=== PATIENT | male | born 1955 | race Caucasian/White ===

== ENCOUNTER → 2018-06-15 08:50 | Outpatient (CLI) | payer OTHER, SELFPAY ==
--- NOTE | 2018-06-15 08:50 | LES_PTH ---
PATIENT: MILES LIN LOC: PRECIOUS U#:[id number] AGE/SX: 69/M ROOM: RE06/15/[address]: Dr. Robert De Paz MD : 1955 BED: DIS: SPEC #: [id number] RECD: 06/15/18 10:52 STATUS: BREE CORRINE #: [id number] TIFFANY: 06/15/18 08:[address]: Robert De Paz DEPT: SURGICAL PATHOLOGY RECD BY: Victor Manuel Abraham ENTERED: 06/17/18 12:46 SP TYPE: Lesion OTHR DR: Dr. Vijay Joseph MD Tissues: Skin of back, NOS Procedures: Surgery Specimen Level III HEADER OPERATION: Excision of left lower back cyst PRE-OP DIAGNOSIS: Lesion of subcutaneous tissue L98.9 TISSUE SUBMITTED: Left lower back lesion MICROSCOPIC DIAGNOSIS Left lower back lesion, biopsy: Epidermal inclusion cyst. KEZIA:fran 06/18/18 MICROSCOPIC DESCRIPTION Slides are reviewed. GROSS DESCRIPTION Received in fixative is one container labeled with the patient's name and designated left lower back lesion. The specimen consists of a previously ruptured mora-white cyst measuring 2.5 x 2 x 1.5 cm. The cyst is filled with brownish-mora cheesy material. Nuclear Medicine Officer sections are submitted in one cassette. / SJ:rg 06/17/18 TC:5 CPT: 27521
== END ==
PROVIDERS: Family Provider Internal Medicine; PCP Internal Medicine; Referring Provider Surgery; Visit Provider Surgery
DX: L98.8 Other specified disorders of the skin and subcutaneous tissue (principal)
CPT/HCPCS: 88304; 88305

== ENCOUNTER → 2020-10-13 10:48 | Outpatient (CLI) | payer MEDICARE, OTHER, SELFPAY ==
[2020-10-13 12:41] LABS: ALB/GLOB Ratio 0.9 RATIO (0.9-2.4); AST(SGOT) 18 U/L (15-37); Alanine Aminotransfer ALT/SGPT 35 U/L (16-61); Albumin, Serum 3.7 g/dL (3.2-5.0); Alkaline Phosphatase 52 U/L (45-117); Anion Gap 3 (5-15); BUN 14 mg/dL (7-18); Calcium,Total 8.8 mg/dL (8.5-10.1); Chloride 103 mmol/L (98-107); Cholesterol 202 mg/dL (200); Creatinine, Serum 1.08 mg/dL (0.70-1.30); EST Glomerular Filtration Rate 73 mL/min (>60); Est Glom Filt Rate - Afr Amer 88 mL/min (>60); Globulin 3.9 g/dL (2.2-4.2); Glucose 117 mg/dL (74-106); High Density Lipoprotein 32 mg/dL; PSA,Total - Annual Screen 2.43 ng/mL (0.00-4.00); Potassium 3.9 mmol/L (3.5-5.1); Protein, Total 7.6 g/dL (6.4-8.2); Sodium Level 136 mmol/L (136-145); Triglycerides 197 mg/dL; Very Low Density Lipoprotein 39 mg/dL (5-40)
== END ==
PROVIDERS: PCP Internal Medicine; Visit Provider Family Medicine
DX: I10 Essential (primary) hypertension (principal); E78.00 Pure hypercholesterolemia, unspecified; Z12.5 Encounter for screening for malignant neoplasm of prostate
CPT/HCPCS: 36415; 80053; 80061; 84153; G0103

== ENCOUNTER 2021-05-11 14:56 | Emergency (ER) | payer MEDICARE, OTHER, SELFPAY ==
[2021-05-11 14:57] VITALS: BP 146/83; PULSE 88; RESP 18; TEMP 36.6; O2SAT 94; BMI 32.1
--- NOTE | 2021-05-11 15:01 | NURSING ---
NO OLD EKGS
[2021-05-11 15:10] VITALS: BP 163/91; PULSE 85; RESP 20; O2SAT 97
--- NOTE | 2021-05-11 15:24 | EKG12_ITS ---
Test Reason : CP Blood Pressure : / mmHG Vent. Rate : 088 BPM Atrial Rate : 088 BPM P-R Int : 176 ms QRS Dur : 092 ms QT Int : 370 ms P-R-T Axes : 041 025 020 degrees QTc Int : 447 ms Normal sinus rhythm Normal ECG Confirmed by ANTHONY CASEY, GA ([id number]), editor dictionary DARLENE RODRIGUEZ ([id number]) on 05/12/2021 10:22:40 A M Referred By: RAY Confirmed By:MACIEJ CRUZ MD
--- NOTE | 2021-05-11 15:37 | RAD_ITS ---
STUDY: X-RAY CHEST REASON FOR EXAM: Male, 65 years old. CHEST PAIN SOB / SOA chest pain TECHNIQUE: XR Chest 1 View COMPARISON: None FINDINGS: There is a right pleural effusion. Normal size heart. Normal mediastinum and jose carlos. Normal visualized pulmonary arteries. There is atherosclerotic calcification of the aortic arch with tortuosity. There are diffuse degenerative changes of the visualized thoracic spine. There is degenerative osteoarthritis of the bilateral shoulders. There is no demonstrated abnormality of the visualized soft tissue structures of the upper abdomen. RAD/Chest 1 View (Portable) IMPRESSION: There is a right pleural effusion. Electronically Signed: Carl Mcgregor MD at 16:06 EST ,
[2021-05-11 15:38] LABS: Absolute Lymphocyte Count 1.18 X10^3/uL (0.83-4.51); Absolute Neutrophil Count 7.8 X10^3/uL (2.0-7.7); Basophil# 0.03 X10^3/uL; Basophil% 0.3 % (0-1); Eosinophil# 0.17 X10^3/uL; Eosinophils% 1.6 % (0-5); Hematocrit 46.7 % (40-54); Lymphocyte # 1.18 X10^3/ul (0.83-4.51); Lymphocyte % 11.2 % (19-41); Mean Corp Hgb Conc 34.3 g/dL (32-36); Mean Corpuscular Hgb 30.8 pg (27.0-32.0); Mean Platelet Vol. 9.6 fl (6.2-12.0); Monocyte# 1.29 X10^3/uL; Monocyte% 12.3 % (0-10); NRBC Flagged by Analyzer 0 % (0-5); Neutrophil # 7.79 X10^3/uL (2.7-7.7); Neutrophil % 74.2 % (47-70); Platelet Count 258 K/mm3 (150-450); RBC Distribution Width CV 12.6 % (11.6-14.6); RBC Distribution Width SD 41.2 fl (35.1-43.9); Red Blood Count 5.19 M/mm3 (4.6-6.2); White Blood Count 10.5 K/mm3 (4.4-11.0)
--- NOTE | 2021-05-11 15:47 | CT_ITS ---
We are attempting to reach an attending provider to discuss findings. An addendum with communication details will be sent when the communication is complete. EXAM: CT ANGIOGRAPHY CHEST WITHOUT AND WITH INTRAVENOUS CONTRAST CLINICAL INDICATION: right sided cp concern for PE hypertension TECHNIQUE: Helically acquired angiography images were obtained of the chest without and with intravenous contrast. This CT exam was performed using one or more of the following dose reduction techniques: automated exposure control, adjustment of the mA and/or kV according to patient size, and/or use of iterative reconstruction technique. This report was created using [employer] report generation technology. MIP reconstructed images were created and reviewed. CONTRAST: IV 100mL Isovue-370 COMPARISON: None. FINDINGS: PULMONARY ARTERIES: There is a right lower lobe demonstrated pulmonary embolism. No heart strain. Normal in caliber. AORTA: Unremarkable. Normal in caliber. No evidence of dissection. GREAT VESSELS OF AORTIC ARCH: Unremarkable. Normal in caliber. No evidence of dissection. LUNGS AND PLEURAL SPACES: There is small right pleural effusion. No mass. No pneumothorax. HEART: There are calcifications of the coronary arteries. No pericardial effusion. No signs of right heart strain, ratio of right ventricle to left ventricle measures less than 1. MEDIASTINUM: Unremarkable. No mediastinal or hilar adenopathy. Esophagus is unremarkable. No hiatal hernia. THYROID: Unremarkable. No thyroid lesions. BONES/JOINTS: There are degenerative findings of the thoracic spine. No suspicious lytic or blastic abnormality. CT/CTA Chest W/WO Contrast IMPRESSION: 1. There is a right lower lobe demonstrated pulmonary embolism. No heart strain. 2. There is small right pleural effusion. Electronically Signed: Carl Mcgregor MD at 16:39 EST ,
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
[2021-05-11] MEDS: Aspirin 81 MG TAB.CHEW 324 MG PO (15:50)
[2021-05-11 15:52] LABS: Anion Gap 6 (5-15); BUN 10 mg/dL (7-18); BUN/Creat Ratio 9.3 RATIO (10-20); Calcium,Total 8.8 mg/dL (8.5-10.1); Chloride 99 mmol/L (98-107); Creatinine, Serum 1.08 mg/dL (0.70-1.30); EST Glomerular Filtration Rate 72 mL/min (>60); Est Glom Filt Rate - Afr Amer 88 mL/min (>60); Estimated Creatinine Clearance 70.69 ml/min; Glucose 162 mg/dL (74-106); Potassium 3.5 mmol/L (3.5-5.1); Sodium Level 134 mmol/L (136-145); Troponin-I HS 3 pg/mL (3.0-78.0)
[2021-05-11 17:00] VITALS: BP 130/82; PULSE 81; RESP 20; O2SAT 93
[2021-05-11 17:32] LABS: Troponin-I HS 4 pg/mL (3.0-78.0)
[2021-05-11 18:00] VITALS: BP 130/82; PULSE 80; RESP 17; O2SAT 95
== END 2021-05-11 18:29 | disposition home or self-care (01) ==
PROVIDERS: Emergency Provider Emergency Medicine; PCP Family Medicine; Visit Provider Emergency Medicine
DX: I26.99 Other pulmonary embolism without acute cor pulmonale (principal); R07.9 Chest pain, unspecified; J90 Pleural effusion, not elsewhere classified; I10 Essential (primary) hypertension; Z86.16 Personal history of COVID-19; Z79.899 Other long term (current) drug therapy
CPT/HCPCS: 71045; 71275; 80048; 84484; 85025; 93005; 99284; Q9967; A4216

== ENCOUNTER → 2021-10-17 | Outpatient (CLI) | payer MEDICARE, OTHER, SELFPAY ==
[2021-10-17 15:18] LABS: Absolute Lymphocyte Count 1.46 X10^3/uL (0.83-4.51); Absolute Neutrophil Count 3.7 X10^3/uL (2.0-7.7); Basophil# 0.04 X10^3/uL; Basophil% 0.7 % (0-1); Eosinophil# 0.13 X10^3/uL; Eosinophils% 2.2 % (0-5); Hematocrit 46.7 % (40-54); Hemoglobin 15.5 g/dL (13.0-16.5); Lymphocyte # 1.46 X10^3/ul (0.83-4.51); Lymphocyte % 24.5 % (19-41); Mean Corp Hgb Conc 33.2 g/dL (32-36); Mean Corpuscular Hgb 30.6 pg (27.0-32.0); Mean Corpuscular Volume 92.3 fL (80-94); Mean Platelet Vol. 10.3 fl (6.2-12.0); Monocyte% 10.1 % (0-10); NRBC Flagged by Analyzer 0 % (0-5); Platelet Count 232 K/mm3 (150-450); RBC Distribution Width CV 13.3 % (11.6-14.6); Red Blood Count 5.06 M/mm3 (4.6-6.2)
[2021-10-17 15:37] LABS: Vitamin B12 286 pg/mL (211-911)
[2021-10-17 15:38] LABS: ALB/GLOB Ratio 0.9 RATIO (0.9-2.4); AST(SGOT) 24 U/L (15-37); Alanine Aminotransfer ALT/SGPT 34 U/L (16-61); Albumin, Serum 3.4 g/dL (3.2-5.0); Alkaline Phosphatase 47 U/L (45-117); Anion Gap 7 (5-15); BUN 17 mg/dL (7-18); BUN/Creat Ratio 16.3 RATIO (10-20); Calcium,Total 8.9 mg/dL (8.5-10.1); Chloride 101 mmol/L (98-107); Cholesterol 201 mg/dL (200); Creatinine, Serum 1.04 mg/dL (0.70-1.30); EST Glomerular Filtration Rate 75 mL/min (>60); Est Glom Filt Rate - Afr Amer 91 mL/min (>60); Globulin 3.8 g/dL (2.2-4.2); Glucose 141 mg/dL (74-106); High Density Lipoprotein 34 mg/dL; Magnesium 2.2 mg/dL (1.6-2.6); PSA,Total - Annual Screen 1.05 ng/mL (0.00-4.00); Potassium 3.5 mmol/L (3.5-5.1); Protein, Total 7.2 g/dL (6.4-8.2); Sodium Level 136 mmol/L (136-145); Thyroid Stim Hormone (TSH) 1.47 uIU/mL (0.358-3.74); Triglycerides 168 mg/dL; Very Low Density Lipoprotein 34 mg/dL (5-40)
== END | disposition home or self-care (01) ==
LOC: MFPLAB 11:35
PROVIDERS: PCP Family Medicine; Referring Provider Family Medicine; Visit Provider Family Medicine
DX: R25.2 Cramp and spasm (principal); E11.9 Type 2 diabetes mellitus without complications; Z12.5 Encounter for screening for malignant neoplasm of prostate
CPT/HCPCS: 36415; 80053; 80061; 82607; 83735; 84153; 84443; 85025; G0103

== ENCOUNTER → 2023-05-31 | Outpatient (CLI) | payer MEDICARE, OTHER, SELFPAY ==
--- OUTSIDE RECORDS SUMMARY | 2023-05-31 11:05 | XMS RPT_ITS | CCD ---
Author Name Unknown Address [address] [place] [address] Organization [facility] Care Team Providers Care Society Reporter Name Role Phone ALLIE TIWARI Unavailable Unavailable ALLIE TIWARI Unavailable Unavailable ALLIE TIWARI Unavailable Unavailable ALLIE TIWARI Unavailable Unavailable Allie Tiwari MD Primary Care Provider [phone] ALLIE TIWARI Primary Care Unavailable MADIHA GIBBONS Attending Unavailable ALLIE TIWARI Primary Care Unavailable Medications Current Medications Medication Drug Class(es) Dates Sig (Normalized) Sig (Original) amoxicillin 875 mg oral tablet (1 source) Penicillin-class Antibacterial Start: 05-14-2022 End: 05-24-2022 take 1 tablet by mouth twice daily amoxicillin (AMOXIL) 875 mg tablet Indications: Laceration of left knee, initial encounter Take 1 tablet by mouth twice daily for 10 days. 20 tablet 0 05/14/2022 05/24/2022 Active Completed/Discontinued Medications Medication Drug Class(es) Dates Sig (Normalized) Sig (Original) atenolol 25 mg oral tablet (2 sources) beta-Adrenergic Sharon take 1 tablet by mouth once daily atenolol (TENORMIN) 25 mg tablet Take 25 mg by mouth once daily. 0 Active Problems Active Problems Problem Classification Problem Date Documented Da te Episodic/Chronic Open wounds of extremities (2 sources) Laceration of left knee; Translations: [Laceration without foreign body, left knee, initial encounter] Onset: 05-14-2022 Episodic Other aftercare (1 source) Surgical follow-up; Translations: [Encounter for removal of sutures] Episodic Other aftercare (1 source) Encounter for removal of sutures; Translations: [Encounter for staple removal] Onset: 03-05-2023 Episodic Past or Other Problems Problem Classification Problem Date Documented Da te Episodic/Chronic Abdominal hernia (2 sources) Right inguinal hernia ; Translations: [Unilateral inguinal hernia, without obstruction or gangrene, not specified as recurrent] Onset: 03-09-2012 03-09-2012 Episodic Medical examination/evaluation (2 sources) Encounter for other general examination; Translations: [Encounter for other general examination] Onset: 03-23-2017 Episodic Results Test Name Value Interpretation Reference Range Facil ity Vital Signs Date Time Vital Sign Value Performing Clinician Danita baires 05-28-2022 12:23-0500 Body temperature 98.6 [degF] [facility] [place] Work Phone: [facility] 05-28-2022 12:23-0500 Body weight 102.51 kg [facility] [place] Work Phone: [facility] 05-28-2022 12:23-0500 Diastolic blood pressure 75 mm[Hg] [facility] [place] Work Phone: [facility] 05-28-2022 12:23-0500 Heart rate 58 /min [facility] [place] Work Phone: [facility] 05-28-2022 12:23-0500 Respiratory rate 16 /min [facility] [place] Work Phone: [facility] 05-28-2022 12:23-0500 SaO2% (BldA) [Mass fraction] 96 % [facility] [place] Work Phone: [facility] 05-28-2022 12:23-0500 Systolic blood pressure 153 mm[Hg] [facility] [place] Work Phone: [facility] 05-14-2022 10:12-0500 Body temperature 98.6 [degF] Madiha Gibbons DO Work Phone: [facility] 05-14-2022 10:12-0500 Body weight 102.51 kg Madiha Gibbons DO Work Phone: [facility] 05-14-2022 10:12-0500 Diastolic blood pressure 74 mm[Hg] Madiha Gibbons DO Work Phone: [facility] 05-14-2022 10:12-0500 Heart rate 90 /min Madiha Gibbons DO Work Phone: [facility] 05-14-2022 10:12-0500 Respiratory rate 16 /min Madiha Gibbons DO Work Phone: [facility] 05-14-2022 10:12-0500 SaO2% (BldA) [Mass fraction] 98 % Madiha Gibbons DO Work Phone: [facility] 05-14-2022 10:12-0500 Systolic blood pressure 150 mm[Hg] Madiha Gibbons DO Work Phone: [facility] Encounters Encounter Date Encounter Type Care Provider Facility Start: 05-28-2022 End: 05-28-2022 ambulatory ALLIE TIWARI Facility:[id number] Start: 05-28-2022 End: 05-28-2022 Patient encounter procedure [facility] Work Phone: [facility] Procedures Date Procedure Procedure Detail Performing Clinician Start: 04-24-2016 Colonoscopy Madiha Anderson erika DO Work Phone: Plan of Treatment Date Care Activity Detail Author Start: 04-24-2026 Colonoscopy COLONOSCOPY [facility] Start: 04-24-2026 COLORECTAL CANCER SCREENING COLORECTAL CANCER SCREENING [facility] Start: 03-26-2022 ADVANCE DIRECTIVE DISCUSSION ADVANCE DIRECTIVE DISCUSSION [facility] Start: 03-26-2022 DEPRESSION ASSESSMENT DEPRESSION ASSESSMENT [facility] Start: 11-24-2021 Influenza vaccination INFLUENZA (#1) [facility] Start: 2018 PNEUMOCOCCAL: 65+ (1 - PCV) PNEUMOCOCCAL: 65+ (1 - PCV) [facility] Start: 02-13-2017 LIPID SCREEN LIPID SCREEN [facility] Start: 02-13-2015 DIABETES SCREEN DIABETES SCREEN [facility] Start: 2008 PROSTATE CANCER SCREENING DISCUSSION PROSTATE CANCER SCREENING DISCUSSION [facility] Start: 08-21-2003 SHINGRIX VACCINE (1 of 2) SHINGRIX VACCINE (1 of 2) [facility] Start: 1998 COLOGUARD (FIT-DNA) COLOGUARD (FIT-DNA) [facility] Start: [address] COLONOGRAPHY [facility] Start: 1998 FECAL OCCULT BLOOD FECAL OCCULT BLOOD [facility] Start: 1998 SIGMOIDOSCOPY SIGMOIDOSCOPY [facility] Start: 1972 Urine microalbumin profile DTAP,TDAP,TD (1 - Tdap) [facility] Start: 08-21-1971 HEPATITIS C SCREENING HEPATITIS C SCREENING [facility] Start: 02-20-1954 COVID-19 VACCINE (#1) COVID-19 VACCINE (#1) [facility] Start: 1953 ABDOMINAL AORTIC ANEURYSM SCREENING ABDOMINAL AORTIC ANEURYSM SCREENING [facility] Dressing change unde r anesthesia DRESSING CHANGE,NOT FOR BURN Procedures Routine Laceration of left knee, initial encounter Ordered: 05/14/2022 [facility] Work Phone: Payers Date Payer Category Payer Medicare [id number] 2019 Medicare [id number] 2019 Medicare [id number] 2017 Unknown [id number] 2017 Unknown [id number] Social History Date Type Detail Facility Start: 03-09-2012 Tobacco smoking stat [facility] Ex-smoker [facility] End: 03-09-1982 History of tobacco use Current smoker [facility] End: 03-09-1982 History of tobacco use Cigarette Smoker [facility] Start: 05-14-2022 End: 05-28-2022 Alcohol intake Current drinker of alcohol (finding) [facility] Start: 04-24-2016 [facility] Start: 1955 Sex Assigned At Not on file C [facility] Medical Equipment Procedure Code Equipment Code Equipment Origin al Text Equipment Identifier Dates Mesh Srg Flat Te c 6x6in Brandon - [id number] Start: 04-08-2012 History and physical note 05-28-2022 Madiha Gibbons DO - 05/28/2022 1:40 PM EST Note Date & Type Note Facility 05-28-2022 History and physi robby note Patient was seen for laceration 14 days ago and jamaal were placed about 15 of them in the left knee. He presents today to have those jamaal removed. The wound is dry clean no drainage no bleeding. It looks good the jamaal were all removed the patient tolerated it well no complications were encountered. The one end toward the proximal end has a small scab over and I did put a little bacitracin and a Band-Aid over that area. He was told to protect it for another week. Watch for signs of infection redness swelling drainage discharge increasing pain or fever if that happens let us know basically this is over now just go ahead and do his normal activity but try to protect it a little bit for another week and then think should be back to normal and is this dictation documented in this encounter [facility] Progress note 05-14-2022 Note Date & Type Note Facility 05-14-2022 Note HNO ID: [id number] Author: Zena Goldman LPN Service: ? Author Type: LICENSED NURSE Type: Progress Notes Filed: 05/14/2022 10:59 AM Note Text: Bandaid applied to left knee, patient tolerated well.Zena Goldman LPN [facility] Progress note 05-14-2022 Note Date & Type Note Facility 05-14-2022 Note HNO ID: [id number] Author: Madiha Gibbons DO Service: ? Author Type: Physician Type: Progress Notes Filed: 05/14/2022 10:46 AM Note Text: Miles Gomez is a 66 year old MALE who presents with Laceration (Laceration left knee cut with a chain saw yesterday about 10am, wound 4.5cm, tetnus is up to date) HPI PAST MEDICAL HISTORY Diagnosis Date HTN (hypertension) Hypercholesteremia Snoring ACTIVE PROBLEM LIST Right Inguinal Hernia Current Outpatient Medications Medication Sig Dispense Refill atenolol (TENORMIN) 25 mg tablet Take 25 mg by mouth once daily. hydrochlorothiazide 25 mg tablet Take 25 mg by mouth once daily. amoxicillin (AMOXIL) 875 mg tablet Take 1 tablet by mouth twice daily for 10 days. 20 tablet 0 [employer]-3 Fatty Acids (FISH OIL) 500-100 mg cap Take by mouth once daily. No current facility-administered medications for this visit. Social History Tobacco Use Smoking status: Former Types: Cigarettes Quit date: 03/09/1982 Years since quittin.2 Substance Use Topics Alcohol use: Yes Comment: rarely Drug use: No Alcohol Use: Yes (rarely) Tobacco Use: Quit 03/09/1982. Types: Cigarettes FAMILY HISTORY Problem Relation Age of Onset Cancer Father lung Coronary Artery Disease Father ROS BP 150/74 Pulse 90 Temp 98.6 Resp 16 Wt 226 lb (102.5kg) SpO2 98% Physical Exam Skin: Comments: Patient has a 4-1/2 cm laceration from a chainsaw it runs across the patella on the left knee. It does not appear to involve the deeper tissues it did go through the skin and it did go through his pants but it did not seem to get to the deeper tissues the patellar tendon appears to be intact the kneecap itself does not appear to be affected the patient is not having tremendous pain. He washed it out good yesterday but it has been over 6 hours still looking at this this needs to be closed. It is oriented vertically across the kneecap. And is going to require several jamaal to close it. The patient wound was properly cleansed with a baby shampoo and saline copiously irrigated and no foreign bodies were noted and then anesthetized with 1% lidocaine plain 5 cc patient tolerated it well 10 jamaal were placed and the wound edges were approximated hemostasis was achieved bacitracin and a Band-Aid are applied the patient is to come back in 10 to 14 days preferably 14 to have the jamaal removed. He is placed on Amoxil 875 twice a day and he can use Motrin as needed for pain. keep the wound clean and dry. ASSESSMENT/PLAN: 1. Laceration of left knee, initial encounter - ICD9: 891.0, ICD10: S81.012A - AMOXICILLIN 875 MG TABLET Madiha Gibbons [facility] History of Present illness Narrative 05-14-2022 Zena Goldman LPN - 05/14/2022 10:58 AM Christina Gibbons DO - 05/14/2022 10:42 AM EST Note Date & Type Note Facility 05-14-2022 History of Presen t illness Narrative Bandaid applied to left knee, patient tolerated well.Zena Goldman LPN Images from the original note were not included. Miles Gomez is a 66 year old MALE who presents with Laceration (Laceration left knee cut with a chain saw yesterday about 10am, wound 4.5cm, tetnus is up to date) HPI PAST MEDICAL HISTORY Diagnosis Date HTN (hypertension) Hypercholesteremia Snoring ACTIVE PROBLEM LIST Right Inguinal Hernia Current Outpatient Medications Medication Sig Dispense Refill atenolol (TENORMIN) 25 mg tablet Take 25 mg by mouth once daily. hydrochlorothiazide 25 mg tablet Take 25 mg by mouth once daily. amoxicillin (AMOXIL) 875 mg tablet Take 1 tablet by mouth twice daily for 10 days. 20 tablet 0 [employer]-3 Fatty Acids (FISH OIL) 500-100 mg cap Take by mouth once daily. No current facility-administered medications for this visit. Social History Tobacco Use Smoking status: Former Types: Cigarettes Quit date: 03/09/1982 Years since quittin.2 Substance Use Topics Alcohol use: Yes Comment: rarely Drug use: No Alcohol Use: Yes (rarely) Tobacco Use: Quit 03/09/1982. Types: Cigarettes FAMILY HISTORY Problem Relation Age of Onset Cancer Father lung Coronary Artery Disease Father ROS BP 150/74 Pulse 90 Temp 98.6 Resp 16 Wt 226 lb (102.5kg) SpO2 98% Physical Exam Skin: Comments: Patient has a 4-1/2 cm laceration from a chainsaw it runs across the patella on the left knee. It does not appear to involve the deeper tissues it did go through the skin and it did go through his pants but it did not seem to get to the deeper tissues the patellar tendon appears to be intact the kneecap itself does not appear to be affected the patient is not having tremendous pain. He washed it out good yesterday but it has been over 6 hours still looking at this this needs to be closed. It is oriented vertically across the kneecap. And is going to require several jamaal to close it. The patient wound was properly cleansed with a baby shampoo and saline copiously irrigated and no foreign bodies were noted and then anesthetized with 1% lidocaine plain 5 cc patient tolerated it well 10 jamaal were placed and the wound edges were approximated hemostasis was achieved bacitracin and a Band-Aid are applied the patient is to come back in 10 to 14 days preferably 14 to have the jamaal removed. He is placed on Amoxil 875 twice a day and he can use Motrin as needed for pain. keep the wound clean and dry. ASSESSMENT/PLAN: 1. Laceration of left knee, initial encounter - ICD9: 891.0, ICD10: S81.012A - AMOXICILLIN 875 MG TABLET Madiha Gibbons documented in this encounter [facility] Progress note 12-06-2020 Note Date & Type Note Facility 12-06-2020 Note HNO ID: [id number] Author: Damaris Hayes RN Service: ? Author Type: Registered Nurse Type: Progress Notes Filed: 12/06/2020 3:00 PM Note Text: Patient presented for a colonoscopy consultation at the request of Dr. Hira Bryan. Upon checking in the patient, it was noted that his last colonoscopy was performed on 04/24/2016. The report from that colonoscopy showed no biopsies or polyps were obtained and according to Dr. De Paz, the colonoscopy could be repeated in 10 years. The patient denies any change in bowel habits, bleeding from the rectum, abdominal pain or change in family history. Spoke with Dr. De Paz, he advised that if the patient is not having any problems, he can wait until his repeat colonoscopy is due in 2026. Spoke with the patient, advised that we do not need to do a colonoscopy at this time, however if he has any changes in bowel habits he is to let our office know right away. Patient voiced understanding. Faxed copy of [address] Bryan's office. Appointment for today was cancelled. Damaris Hayes RN [facility] Evaluation note Note Date & Type Note Facility documented in this encounter [facility] Evaluation note Note Date & Type Note Facility documented in this encounter [facility] Summary Purpose Family History No Family History Records FoundNo Family History Records FoundNo Family History Records Found Advance Directives No Advanced Directives Records FoundNo Advanced Directives Records FoundNo Advanced Directives Records Found Additional Source Comments (unrecognized sect ion and content) No Status Records FoundNo Status Records FoundNo Status Records Found INFORMATION SOURCE (unrecogn ized section and content) DATE CREATED AUTHOR AUTHOR'S ORGANIZ ATION 12/09/2020 [facility] DATE CREATED AUTHOR AUTHOR'S ORGANIZ ATION 05/30/2022 [facility] nter Source Comments (unrecognize d section and content) In the event this informatio n is protected by the Federal Confidentiality of Alcohol and Drug Abuse Patient Records regulations: The Federal rules restrict any use of the information to criminally investigate or prosecute any alcohol or drug abuse patient.[facility] the event this information is protected by the Federal Confidentiality of Alcohol and Drug Abuse Patient Records regulations: The Federal rules restrict any use of the information to criminally investigate or prosecute any alcohol or drug abuse patient.[facility] Reason for Visit (unrecogniz ed section and content) Reason Comments Suture Removal Left knee staple rem oval placed 05/14 at [place] [facility] Care Teams (unrecognized sec tion and content) Society Reporter Relationship Specialty Start Date End Date Allie Tiwari MD PCP - General Internal Medicine 03/09/12 FOR RECORDS PERTAINING TO PATIENTS WHO ARE OR HAVE BEEN ENROLLED IN A CHEMICAL DEPENDENCY/SUBSTANCEABUSE PROGRAM, SOME INFORMATION MAY BE OMITTED. This clinical summary was aggregated from multiple sources. Caution should be exercised in using it in the provision of clinical care. This summary normalizes information from multiple sources, and as a consequence, information in this document may materially change the coding, format and clinical context of patient data. In addition, data may be omitted in some cases. CLINICAL DECISIONS SHOULD BE BASED ON THE PRIMARY CLINICAL RECORDS. [facility] [employer] [facility]. provides no warranty or guarantee of the accuracy or completeness of information in this document.
== END | disposition home or self-care (01) ==
LOC: MFPLAB 10:45
PROVIDERS: PCP Family Medicine; Visit Provider Family Medicine
DX: E11.9 Type 2 diabetes mellitus without complications (principal)
CPT/HCPCS: 36415; 83036

== ENCOUNTER → 2024-05-12 | Outpatient (CLI) | payer MEDICARE, OTHER, SELFPAY ==
[2024-05-12 12:43] LABS: Hematocrit 49.5 % (40-54); Hemoglobin 16.7 g/dL (13.0-16.5); Mean Corp Hgb Conc 33.7 g/dL (32-36); Mean Corpuscular Hgb 30.1 pg (27.0-32.0); Mean Corpuscular Volume 89.4 fL (80-94); Mean Platelet Vol. 9.8 fl (6.2-12.0); Platelet Count 237 K/mm3 (150-450); RBC Distribution Width CV 12.7 % (11.6-14.6); RBC Distribution Width SD 41.6 fl (35.1-43.9); Red Blood Count 5.54 M/mm3 (4.6-6.2); White Blood Count 6.8 K/mm3 (4.4-11.0)
[2024-05-12 12:57] LABS: ALB/GLOB Ratio 0.8 RATIO (0.9-2.4); AST(SGOT) 25 U/L (15-37); Alanine Aminotransfer ALT/SGPT 49 U/L (16-61); Albumin, Serum 3.6 g/dL (3.2-5.0); Alkaline Phosphatase 51 U/L (45-117); Anion Gap 7 (5-15); BUN 14 mg/dL (7-18); BUN/Creat Ratio 12.6 RATIO (10-20); Calcium,Total 9.6 mg/dL (8.5-10.1); Chloride 105 mmol/L (98-107); Cholesterol 208 mg/dL (200); Creatinine, Serum 1.11 mg/dL (0.70-1.30); EST Glomerular Filtration Rate 70 mL/min (>60); Est Glom Filt Rate - Afr Amer 84 mL/min (>60); Globulin 4.3 g/dL (2.2-4.2); Glucose 139 mg/dL (74-106); High Density Lipoprotein 38 mg/dL; PSA,Total - Annual Screen 1.23 ng/mL (0.00-4.00); Protein, Total 7.9 g/dL (6.4-8.2); Sodium Level 137 mmol/L (136-145); Triglycerides 346 mg/dL; Very Low Density Lipoprotein 69 mg/dL (5-40)
[2024-05-13 13:07] LABS: PROEL- Albumin 3.7 g/dL (2.9-4.4); PROEL- Alpha-1 Globulin 0.2 g/dL (0.0-0.4); PROEL- Alpha-2 Globulin 0.9 g/dL (0.4-1.0); PROEL- Beta Globulin 1.5 g/dL (0.7-1.3); PROEL- Gamma Globulin 1.1 g/dL (0.4-1.8); PROEL- Globulin, Total 3.7 g/dL (2.2-3.9); PROEL- TOTAL PROTEIN 7.4 g/dL (6.0-8.5); PROEL-M-Spike Not Observed g/dL (Not Observed)
== END | disposition home or self-care (01) ==
PROVIDERS: PCP Family Medicine; Referring Provider Family Medicine; Visit Provider Family Medicine
DX: E11.9 Type 2 diabetes mellitus without complications (principal); M79.10 Myalgia, unspecified site; Z12.5 Encounter for screening for malignant neoplasm of prostate
CPT/HCPCS: 36415; 80053; 80061; 84153; 84165; 84403; 84443; 85027; G0103

== ENCOUNTER → 2024-08-14 | Outpatient (CLI) | payer MEDICARE, OTHER, SELFPAY ==
--- NOTE | 2024-08-14 10:38 | VDLE_ITS ---
Reason For Study Reason For Study: Left leg swelling RIGHT LEFT CFV is compressible, spontaneous, phasic, competent GSV is normal. and demonstrates normal augmentation. Acute deep vein thrombosis is noted in the left CFV, Procedure FV, PopV, T/P Trunk, Gastroc V, PTV, and PeroV. This is a venous duplex using B-mode, color flow and Thrombus in CFV and FV prox is mobile. spectral Doppler. Acute superficial vein thrombosis is noted in the Exam performed in department. left SSV. A preliminary report was called and/or faxed to Shira KEYES. VL/Venous Duplex US, Unilateral Interpretation Summary Acute deep vein thrombosis noted in the left common femoral vein, femoral vein, popliteal vein, tibioperoneal trunk vein, gastrocnemius vein, posterior tibial vein, peroneal vein. Acute superficial vein thrombosis noted in the left small saphenous vein. Ordering Physician: Goyo Del Valle Referring Physician: Hira Bryan MD Performed By: Regina Velázquez RVT
== END | disposition home or self-care (01) ==
LOC: CVS 10:34
PROVIDERS: PCP Family Medicine; Referring Provider Family Medicine; Visit Provider Family Medicine
DX: M79.89 Other specified soft tissue disorders (principal); M79.605 Pain in left leg
CPT/HCPCS: 93971

== ENCOUNTER → 2024-09-24 | Outpatient (CLI) | payer MEDICARE, OTHER, SELFPAY ==
--- NOTE | 2024-09-24 12:50 | VDLE_ITS ---
Reason For Study Reason For Study: HX LLE DVT RIGHT LEFT CFV is compressible, spontaneous, phasic, competent Acute deep vein thrombosis is noted in the left CFV and demonstrates normal augmentation. distal to SFJ and throughout the FV, PopV, T/P Trunk Procedure and Gastroc V This is a venous duplex using B-mode, color flow and PTV is compressible spectral Doppler. [place] V is compressible Exam performed in department. The exam was diagnostic. Compare to study 08/14/2024. A preliminary report was called and/or faxed to [facility]. VL/Venous Duplex US, Unilateral Interpretation Summary Acute deep vein thrombosis noted in the left common femoral vein, femoral vein, popliteal vein, tibioperoneal trunk vein, gastrocnemius vein. Partial clot resolution in interval since prior imaging Ordering Physician: Ritu Appiah Referring Physician: Hira Bryan Performed By: Yousif Calzada RVT
== END | disposition home or self-care (01) ==
LOC: CVS 12:49
PROVIDERS: PCP Family Medicine; Referring Provider Physician Assistant; Visit Provider Physician Assistant
DX: R22.42 Localized swelling, mass and lump, left lower limb (principal); I82.402 Acute embolism and thrombosis of unspecified deep veins of left lower extremity
CPT/HCPCS: 93971

== ENCOUNTER → 2024-12-04 | Outpatient (CLI) | payer MEDICARE, OTHER, SELFPAY ==
[2024-12-04 18:10] LABS: Creatinine, Urine (random) 100.00 mg/dL (39.00-259.00); Microalbumin,Random Urine < 12.0 mg/L (<20 mg/L)
== END | disposition home or self-care (01) ==
LOC: MFPLAB 14:56 → LABSPEC 14:58
PROVIDERS: PCP Family Medicine; Visit Provider Family Medicine
DX: E11.9 Type 2 diabetes mellitus without complications (principal)
CPT/HCPCS: 82043; 82570

== ENCOUNTER → 2025-02-27 | Outpatient (CLI) | payer MEDICARE, OTHER, SELFPAY ==
--- NOTE | 2025-02-27 10:04 | VDLE_ITS ---
Reason For Study Reason For Study: Left leg swelling RIGHT LEFT CFV is compressible, spontaneous, phasic, competent CFV is partially compressible with bright and demonstrates normal augmentation. intraluminal echoes consistet with Chronic DVT. Procedure Normal venous flow noted. This is a venous duplex using B-mode, color flow and FV is partially NONCOMPRESSIBLE throughout with mixed spectral Doppler. echogenicity noted. Minimal venous flow throughout. Exam performed in department. PopV is partially compressible with mixed Patient was scanned in reverse Trendelenburg position echogenicity noted. Venous flow noted with during reflux assessment. augmentation. Compared to 09/24/2024. T/P trunk is partially compressible. Gasroc V is partially compressible. PTV is compressible. LT PerV is compressible. SFJ is competent and measures 0.91 cm. GSV proximal thigh measures 0.43 x 0.43 cm. GSV at knee measures 0.54 x 0.54 cm. GSV INCOMPETENT throughout for greater than 0.5 seconds. INCOMPETENT conventions reservationist noted 14 cm above medial malleolus. SSV mid calf is competent and measures 0.21 x 0.24 cm. VL/Venous Duplex US, Unilateral Interpretation Summary Chronic post thrombotic changes noted in the left femoral vein, popliteal vein, tibioperoneal trunk vein, gastrocnemius vein Positive for reflux in the left great saphenous vein throughout. Ordering Physician: Ritu Appiah Referring Physician: Hira Bryan MD Performed By: Regina Velázquez RVT
--- OUTSIDE RECORDS SUMMARY | 2025-02-27 10:40 | XMS RPT_ITS | CCD ---
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 Iniguez Primary Care Provider Dr. Hira Bryan MD Attending Provider Dr. Hira Bryan MD Referring Provider Dr. Goyo Del Valle MD Attending Provider Dr. Goyo Del Valle MD Referring Provider Dr. Jeremy Ch MD Attending Provider [phone] Hira Bryan MD Primary Care Provider Dr. Hira Bryan MD Referring Provider Ritu Powers Attending Provider Ritu Powers Referring Provider Dr. Hira Bryan MD Primary Care Physicia n Ritu Powers Attending Physician Dr. Jeremy Ch MD Attending Physician Dr. Hira Bryan MD Attending Physician Ritu Appiah Referring Unavailable Hira Bryan Primary Care Unavailable Ritu Appiah Attending Unavailable Hira Bryan Attending Unavailable Hira Bryan Primary Care Unavailable [facility] Unavailable Del Valle, Goyo Referring Unavailable Addington, Jeremy Attending Unavailable Appiah, Ritu Referring Unavailable [facility] Unavailable Jeremy Ch Attending Unavailable [facility] Referring Unavailable [facility] Unavailable Appiah, Ritu Attending Unavailable Appiah, Ritu [facility]ending [facility] Referring Unavailable [facility] Unavailable [facility] Unavailable [facility] Attending Unavailable [facility] Referring Unavailable [facility] Unavailable Del ValleGoyo Attending Unavailable Del Valle, Goyo Referring Unavailable Appiah, Ritu Attending Unavailable Appiah, Ritu Referring Unavailable [facility] Unavailable Medications Current Medications Medication Drug Class(es) Dates Sig (Normalized) Sig (Original) amoxicillin 875 mg oral tablet (1 source) Penicillin-class Antibacterial Start: 05-14-2022 End: 05-24-2022 take 1 tablet by mouth twice daily amoxicillin (AMOXIL) 875 mg tablet Indications: Laceration of left knee, initial encounter Take 1 tablet by mouth twice daily for 10 days. 20 tablet 0 05/14/2022 05/24/2022 Active Comment on above: Take 1 tablet by saen twice daily for 10 days. apixaban 5 mg oral tablet (7 sources) Factor Xa Inhibitor Start: 05-11-2021 take 1 tablet by mouth twice daily atenolol 25 mg oral tablet (9 sources) beta-Adrenergic Sharon Start: 06-12-2018 take 1 tablet by mouth once daily Comment on above: Take 25 mg by mouth once daily. empagliflozin 10 mg oral tablet (4 sources) Sodium-Glucose Cotransporter 2 Inhibitor Start: 09-19-2024 take 1 tablet by mouth once daily in the morning fluticasone propionate 0.05 mg/actuat metered dose nasal spray (4 sources) Corticosteroid Start: 09-19-2024 hydroCHLOROthiazide 25 mg oral tablet (9 sources) Thiazide Diuretic Start: 06-12-2018 take 1 tablet by mouth once daily Comment on above: Take 25 mg by mouth once daily. losartan potassium 50 mg oral tablet (4 sources) Angiotensin 2 Receptor Sharon Start: 09-19-2024 take 1 tablet by mouth once daily metFORMIN hydrochloride 500 mg oral tablet (4 sources) Biguanide Start: 09-19-2024 take 1 tablet by mouth once daily Completed/Discontinued Medications Medication Drug Class(es) Dates Sig (Normalized) Sig (Original) cholecalciferol 0.025 mg oral capsule (1 source) Vitamin D End: 05-14-2022 take 1 capsule by mouth once daily Cholecalciferol, Vitamin D3, 25 mcg (1,000 unit) cap Take 1,000 Units by mouth once daily. 0 05/14/2022 Discontinued (Course of therapy completed) Comment on above: Take 1,000 Units by mouth once daily. [place]-3 Fatty Acids (FISH OIL) 500-100 mg cap (2 sources) [place] -3 Fatty Acids (FISH OIL) 500-100 mg cap Take by mouth once daily. 0 Active Comment on above: Take by mouth once d aily. Problems Active Problems Problem Classification Problem Date Documented Da te Episodic/Chronic Diabetes mellitus without complication (1 source) Type 2 diabetes mellitus without complications; Translations: [Type 2 diabetes mellitus without complications] Onset: 12-17-2024 Chronic Nonspecific chest pain (7 sources) Chest pain; Translations: [Chest pain, unspecified] 05-19-2021 Episodic Open wounds of extremities (2 sources) Laceration of left knee; Translations: [Laceration without foreign body, left knee, initial encounter] Onset: 05-14-2022 Episodic Other aftercare (1 source) Surgical follow-up; Translations: [Encounter for removal of sutures] Episodic Other aftercare (1 source) Encounter for removal of sutures; Translations: [Encounter for staple removal] Onset: 05-28-2022 Episodic Other connective tissue disease (2 sources) Other specified soft tissue disorders; Translations: [Other specified soft tissue disorders] Onset: 12-03-2024 Episodic Other infections; including parasitic (7 sources) Personal history of other infectious and parasitic diseases; Translations: [History of COVID-19] 05-11-2021 Episodic Phlebitis; thrombophlebitis and thromboembolism (11 sources) Deep venous thrombosis of lower extremity; Translations: [Acute embolism and thrombosis of unspecified deep veins of left lower extremity] Onset: 12-03-2024 09-24-2024 Episodic Pleurisy; pneumothorax; pulmonary collapse (7 sources) Pleural effusion; Translations: [Pleural effusion, not elsewhere classified] 05-19-2021 Episodic Pulmonary heart disease (7 sources) Pulmonary embolism; Translations: [Other pulmonary embolism without acute cor pulmonale] 05-19-2021 Episodic Past or Other Problems Problem Classification Problem Date Documented Da te Episodic/Chronic Abdominal hernia (2 sources) Right inguinal hernia ; Translations: [Unilateral inguinal hernia, without obstruction or gangrene, not specified as recurrent] Onset: 03-09-2012 03-09-2012 Episodic Medical examination/evaluation (2 sources) Encounter for other general examination; Translations: [Encounter for other general examination] Onset: 03-23-2017 Episodic Other skin disorders (1 source) Localized swelling, mass and lump, left lower limb; Translations: [Localized swelling, mass and lump, left lower limb] Onset: 09-30-2024 Episodic Results Test Name Value Interpretation Reference Range Facility Microalb:Creat Ratio,Random URon 12-04-2024 Creatinine [Mass/Vol] 100.00 mg/dL Normal 39.00- 259.0 0 [facility] Comment on above: Order Comment: Order Date: 12/04/24 Order Info: [id number] - MIALB Performed By: #### L 502.0250 #### [facility] [address] [place], [place], [id number] MALB:CREAT UNABLE TO CALCULATE Normal <30 mg/g CRE [facility] Comment on above: Order Comment: Order Date: 12/04/24 Order Info: [id number] - MIALB Performed By: #### L 502.0250 #### [facility] [address] [place], [address] MICROALBUMIN,UR < 12.0 Normal <20 mg/L [facility] Comment on above: Order Comment: Order Date: 12/04/24 Order Info: [id number] - MIALB Performed By: #### L 502.0250 #### [facility] [address] [place], [place], [id number] Microalbumin/creat ratio urO rdered By: Hira Bryan on 12-04-2024 Urine microalbumin/creatinine ratio measurement UNABLE TO CALCULATE mg/g CRE <30 [facility] Random urine creatinine enriqueta urement (mass/volume)Ordered By: Phonglamar Irvin on 12-04-2024 Creatinine Unsp time (U) [Mass/Vol] 100.00 mg/dL 39.00-259.0 0 [facility] Urine albumin measurement wi th detection limit of 20 mg/L or less (mass/volume)Ordered By: Hira Bryan on 12-04-2024 Albumin DL <= 20 mg/L (U) [Mass/Vol] < 12.0 mg/L <20 mg/L [facility] MR/BMS.BVSon 12-03-2024 MR/BMS.BVS [facility] [address] [place] [address] OFFICE VISIT Date of Service: 12/03/24 MR#: [id number] Acct: [id number] Name: MILES GOMEZ Rep #: [id number] : 1955 Provider: ESTHER Santoyo Age/Sex: 69/M Location: [facility] Status: Signed Intake Vital Signs 05/11/21 14:57 12/03/24 15:28 Height 5 ft 11 in Weight: 219 lb BP 133/83 H Blood Pressure Location Rt brachial Position Sitting Respiration 18 Pulse 80 Pulse Source Monitor Temp 98.2 F Temp Source Temporal Pulse Oximetry (%) 95 Oxygen Delivery Method room air Intake Visit Reasons: 1 M FU Chief Complaint: back cyst Is patient in pain?: No Allergies No Known Allergies Allergy (Verified 12/03/24 15:27) Medications ???Medication ???Instructions ???Recorded ???Confirmed ???Type atenolol 25 mg tablet 25 mg PO DAILY 06/12/18 12/03/24 H istory hydrochlorothiazide 25 mg tablet 25 mg PO DAILY 06/12/18 12/03/24 H istory apixaban 5 mg (74 tabs) tablets in 5 mg PO BID 30 days #74 tabs 12/03/24 Rx a dose pack (Eliquis DVT-PE Treat 30D Start) empagliflozin 10 mg tablet 10 mg PO QAM 09/19/24 12/03/24 His tory (Jardiance) fluticasone propionate 50 1 spray intranasal BID 09/19/24 History mcg/actuation nasal spray,suspension losartan 50 mg tablet (Cozaar) 50 mg PO QDAY 09/19/24 12/03/24 Hi story metformin 500 mg tablet 500 mg PO QDAY 09/19/24 12/03/24 H istory Have you fallen in the past year?: No PFSH Medical History Osteoarthritis HTN (hypertension) Surgical History History of colonoscopy ( 2016) History of hernia repair ( 2011) Family History Father Heart disease Hypertension Social History Smoking Status: Former smoker how long ago did patient quit smokin years HPI HPI HPI: MILES GOMEZ, is a 69 M who presents to the office today for follow-up regarding extensive LLE DVT. Recall that he developed unprovoked LLE DVT in July 2024 with outpatient ultrasound demonstrating acute DVT in the L common femoral, femoral, popliteal, TP trunk, gastroc, posterior tibial, and peroneal veins after developing sudden LLE edema. He has been on Eliquis since 07/2024, he reports he has been taking twice daily as recommended, has missed maybe 3-4 doses in the course of these last 3 months. Recall that he has a history of prior small PE associated with COVID but had no lower extremity imaging at the time; he was treated with short course of anticoagulation. Since last OV, he reports he has noticed slight improvement in his lower extremity edema. He found the compression stockings intolerable and has not been wearing these. He does not have pain, he does note LLE fatigue particularly at the end of the day. ROS General General: Yes fatigue and weakness (L leg); No weight change, appetite, colon cancer or breast cancer HEENT HEENT: No difficulty swallowing, eye injury, eye surgery, swollen glands or hoarseness Endo Endocrine: Yes diabetes mellitus; No thyroid disease, thyroid cancer, Hair loss, heat intolerance or cold intolerance Skin Skin: No rash or changing moles Musc Musculoskeletal: No back problems, arthritis, rheumatoid arthritis, gout or joint pain Cardio Cardiovascular: Yes high blood pressure; No murmur, pacemaker, heart disease, atrial fibrillation, heart attack, heart stent, palpitations, shortness of breath with exertion or chest pain Psych Psychiatric: No depression, anxiety or hearing voices Resp Respiratory: No shortness of breath, No sleep apnea, Yes cough, No COPD, No asthma, No emphysema and No wheezing Gastro Gastrointestinal: No abdominal pain, No nausea or vomiting, No diarrhea, No constipation, No blood in stool, No acid reflux, No hemorrhoids, No ulcers, No gallbladder problem and No black,tarry st ools Roger Hematologic: Yes blood thinners, No blood disorders, No bleeding, No anemia and Yes blood clots Neuro Neurologic: No system reviewed and no additional complaints, except as documented, No as per HPI, No abnormal gait, No abnormal hearing, No abnormal movements, No abnormal speech, No behavioral changes, No burning sensations, No confusion, No convulsions, No disequilibrium, Yes dizziness (2 episodes since DVT), Yes localized weakness, No frequent falls, No headache(s), No lack of coordination, No loss of vision, No memory loss, No numbness, No other visual disturbances, No radicular pain, No restless legs, No sensory deficit, No syncope, No tingling, No tremor(s), Yes weakness (L leg) and No other Exam Const (more content not included)... Normal [facility] MR/BMS.Christopher 09-24-2024 MR/BMS.KAVYA [facility] [address] [place] [address]. [address] [place] [address] OFFICE VISIT Date of Service: 09/24/24 MR#: [id number] Acct: [id number] Name: MILES GOMEZ Rep #: [id number] : 1955 Provider: ESTHER Santoyo Age/Sex: 69/M Location: [facility] Status: Signed Intake Vital Signs 05/11/21 14:57 09/24/24 10:12 Height 5 ft 11 in Weight: 219 lb BP 117/68 Blood Pressure Location Rt brachial Position Sitting Respiration 16 Pulse 62 Pulse Source Monitor Temp 98.2 F Temp Source Temporal Pulse Oximetry (%) 96 Oxygen Delivery Method room air Intake Visit Reasons: Deep vein thrombosis Chief Complaint: back cyst Is patient in pain?: No Allergies No Known Allergies Allergy (Verified 09/24/24 10:12) Medications ???Medication ???Instructions ???Recorded ???Confirmed ???Type atenolol 25 mg tablet 25 mg PO DAILY 06/12/18 09/24/24 H istory hydrochlorothiazide 25 mg tablet 25 mg PO DAILY 06/12/18 09/24/24 H istory apixaban 5 mg (74 tabs) tablets in 5 mg PO BID 30 days #74 tabs 09/24/24 Rx a dose pack (Eliquis DVT-PE Treat 30D Start) empagliflozin 10 mg tablet 10 mg PO QAM 09/19/24 09/19/24 His tory (Jardiance) fluticasone propionate 50 1 spray intranasal BID 09/19/24 History mcg/actuation nasal spray,suspension losartan 50 mg tablet (Cozaar) 50 mg PO QDAY 09/19/24 09/19/24 Hi story metformin 500 mg tablet 500 mg PO QDAY 09/19/24 09/19/24 H istory Have you fallen in the past year?: No PFSH Medical History (Updated 09/24/24 @ 10:57 by ESTHER Santoyo) Osteoarthritis HTN (hypertension) Surgical History History of colonoscopy ( 2016) History of hernia repair ( 2011) Family History Father Heart disease Hypertension Social History (Updated 09/24/24 @ 10:11 by Ruth Davis MA) Smoking Status: Former smoker how long ago did patient quit smokin years HPI HPI HPI: MILES GOMEZ, is a 69 M who presents to the office today for evaluation of extensive LLE DVT. He reports that in July he suddenly developed LLE swelling and discomfort which led him to see his PCP and get a venous ultrasound. Ultrasound 08/14/24 demonstrated acute DVT in the L common femoral, femoral, popliteal, TP trunk, gastroc, posterior tibial, and peroneal veins. He was initiated on Eliquis which he has been taking as prescribed. He reports he has had minimal improvement in his symptoms since starting Eliquis; after some thought he acknowledges that he has less fatigue with activity but otherwise he feels the swelling has not improved and is particularly bad at the end of the day. He states he wore compression stockings for a few weeks and did not feel they were making a difference; these were nonmeasured and he reports they were pretty easy to get on/off, did not feel very tight though he is unsure of exact strength. 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 With respect to potential provoking factors, he denies any preceding illness, injury, travel, or otherwise diminished activity. He recalls that the night before he really noticed the swelling he did have a particularly bad muscle cramp in his thigh; cramps are chronic for him but this was worse than normal. He does have a history of prior small PE (no lower extremity imaging performed at the time) and this occurred during/shortly following COVID and travel; he was treated with Eliquis then. No VTE prior to that time. He denies any family history of VTE or clotting disorders to his knowledge. He is not sure if he is up to date on cancer screenings but reports no other persistent/new symptoms recently. ROS General General: No weight change, appetite, fatigue, colon cancer, breast cancer or weakness HEENT HEENT: No difficulty swallowing, eye injury, eye surgery, swollen glands or hoarseness Endo Endocrine: No thyroid disease, diabetes mellitus, thyroid cancer, Hair loss, heat intolerance or cold intolerance Skin Skin: No rash or changing moles Musc Musculoskeletal: No back problems, arthritis, rheumatoid arthritis, gout or joint pain Cardio Cardiovascular: Yes high blood pressure; No murmur, pacemaker, heart disease, atrial fibrillation, heart attack, heart stent, palpitations, shortness of breath with exertion or chest pain Psych Psychiatric: No depression, anxiety or hearing voices Resp Respiratory: No shortness of breath, No sleep apnea, Yes cough, No COPD, No asthma, No emphysema and No wheezing Gastro Gastrointestinal: No abdominal pain, No nausea or vomiting, No diarrhea, No constipation, No blood in stool, No aci (more content not included)... Normal [facility] Venous Duplex US, Unilateral on 09-24-2024 Venous Duplex US, Unilateral [facility] [address] [place] [address] Venous Duplex US, Unilateral 09/24/24 1300 MR#: [id number] Acct: [id number] Name: MILES GOMEZ Rep #: [id number] : 1955 69 From: Jeremy Ch MD Attending Dr: ESTHER Santoyo Status: REG CLI Ordering Dr: Ritu Appiah Date: 09/24/24 Location: [facility] Sex: M C Admitted: Reason For Study Reason For Study: HX LLE DVT RIGHT LEFT CFV is compressible, spontaneous, phasic, competent Acute deep vein thrombosis is noted in the left CFV and demonstrates normal augmentation. distal to SFJ and throughout the FV, PopV, T/P Trunk Procedure and Gastroc V This is a venous duplex using B-mode, color flow and PTV is compressible spectral Doppler. Israel V is compressible Exam performed in department. The exam was diagnostic. Compare to study 08/14/2024. A preliminary report was called and/or faxed to Ritu Appiah [facility]. VL/Venous Duplex US, Unilateral Interpretation Summary Acute deep vein thrombosis noted in the left common femoral vein, femoral vein, popliteal vein, tibioperoneal trunk vein, gastrocnemius vein. Partial clot resolution in interval since prior imaging Ordering Physician: Ritu Appiah Referring Physician: Hira Bryan Performed By: Yousif Calzada, RVT 09/24/24 1637 Date Jeremy Ch MD CC: ESTHER Santoyo; Dr. Hira Bryan MD Date Dictated: 09/24/24 1300 Date Transcribed: 09/24/241636 Technical Sales Support Specialist: Signed Normal [facility] Venous duplex ultrasound rep ortOrdered By: Jeremy Ch on 09-24-2024 US Vein [facility] [address] [place] [address] Venous Duplex US, Unilateral 09/24/24 1300 MR#: [id number] Acct: [id number] Name: MILES GOMEZ Rep #:[id number] : 1955 69 From: Jeremy Juarez Attending Dr: ESTHER Santoyo Stat us: REG CLI Ordering Dr: Ritu Appiah Date: Location: [facility] Sex: M C Admitted: Reason For Study Reason For Study: HX LLE DVT RIGHT LEFT CFV is compressible, spontaneous, phasic, competent Acute deep vein thrombosis is noted in the left CFV and demonstrates normal augmentation. distal to SFJand throughout the FV, PopV, T/P Trunk Procedure and Gastroc V This is a venous duplex using B-mode, color flow and PTV is compressible spectral Doppler. Israel V is compressible Exam performed in department. The exam was diagnostic. Compare to study 08/14/2024. A preliminary report was called and/or faxed to [facility]it[facility] App[facility]. VL/Venous Duplex US, Unilateral Interpretation Summary Acute deep vein thrombosis noted in the left common femoral vein, femoral vein, popliteal vein, tibioperoneal trunk vein, gastrocnemius vein. Partial clot resolution in interval since prior imaging Ordering Physician: Ritu Appiah Referring Physician: Hira Bryan Performed By: Yousif Calzada, RVT 07/05/20 1636 Date _ Jeremy Ch MD CC: ESTHER Santoyo; Dr. Hira Bryan MD ~ Date Dictated: 09/24/24 1300 Date Transcribed: 09/24/241636 Technical Sales Support Specialist: Signed [facility] Work Phone: Venous Duplex US, Unilateral on 08-14-2024 Venous Duplex US, Unilateral [facility] [address] [place] [address] Venous Duplex US, Unilateral 08/14/24 1043 MR#: [id number] Acct: [id number] Name: MILES GOMEZ Rep #: [id number] : 1955 68 From: Jeremy Ch MD Attending Dr: Dr. Goyo Del Valle MD Status: REG CLI Ordering Dr: Goyo Del Valle MD Date: 08/14/24 Location: [facility] Sex: M C Admitted: Reason For Study Reason For Study: Left leg swelling RIGHT LEFT CFV is compressible, spontaneous, phasic, competent GSV is normal. and demonstrates normal augmentation. Acute deep vein thrombosis is noted in the left CFV, Procedure FV, PopV, T/P Trunk, Gastroc V, PTV, and PeroV. This is a venous duplex using B-mode, color flow and Thrombus in CFV and FV prox is mobile. spectral Doppler. Acute superficial vein thrombosis is noted in the Exam performed in department. left SSV. A preliminary report was called and/or faxed to Shira KEYES. VL/Venous Duplex US, Unilateral Interpretation Summary Acute deep vein thrombosis noted in the left common femoral vein, femoral vein, popliteal vein, tibioperoneal trunk vein, gastrocnemius vein, posterior tibial vein, peroneal vein. Acute superficial vein thrombosis noted in the left small saphenous vein. Ordering Physician: Goyo Del Valle Referring Physician: Hira Bryan MD Performed By: Regina Velázquez RVT 08/14/24 1647 Date Jeremy Ch MD CC: Dr. Hira Bryan MD; Dr. Goyo Del Valle MD Date Dictated: 08/14/24 1043 Date Transcribed: 08/14/241646 Technical Sales Support Specialist: Signed Normal [facility] Venous duplex ultrasound rep ortOrdered By: Jeremy Ch on 08-14-2024 US Vein [facility] [address] [place] [address] Venous Duplex US, Unilateral 08/14/241042 MR#: [id number] Acct: [id number] Name: MILES GOMEZ Rep #:[id number] : 1955 68 From: Jeremy Juarez Attending Dr: Dr. Goyo Del Valle MD Status: REG CLI Ordering Dr: Goyo Del Valle MD Date: Location: [facility] Sex: M C Admitted: Reason For Study Reason For Study: Left leg swelling RIGHT LEFT CFV is compressible, spontaneous, phasic, competent GSV is normal. and demonstrates normal augmentation. Acute deep vein thrombosis is noted in the left CFV, Procedure FV, PopV, T/PTrunk, Gastroc V, PTV, and PeroV. This is a venous duplex using B-mode, color flow and Thrombus in CFV and FV prox is mobile. spectral Doppler. Acute superficial vein thrombosis is noted in the Exam performed in department. left SSV. A preliminary report was called and/or faxed to Shira KEYES. VL/Venous Duplex US, Unilateral Interpretation Summary Acute deep vein thrombosis noted in the left common femoral vein, femoral vein, popliteal vein, tibioperoneal trunk vein, gastrocnemius vein, posterior tibial vein, peroneal vein. Acute superficial vein thrombosis noted in the left small saphenous vein. Ordering Physician: Goyo Del Valle Referring Physician: Hira Bryan MD Performed By: Regina Velázquez RVT 08/14/241646 Date _ Jeremy Ch MD CC: Dr. Hira Bryan MD; Dr. Goyo Del Valle MD ~ Date Dictated: 08/14/24 1043 Date Transcribed: 08/14/241646 Technical Sales Support Specialist: Signed [facility] Work Phone: Protein Electroph, Son 05-13 Albumin [Mass/Vol] 3.7 g/dL Normal 2.9-4.4 [facility] Comment on above: Order Comment: Order Date: 03/17/24Order Info: [id number] - PROEL Performed By: #### L 500.4100, L3100.3450, L501.9910, L509.3000, L501.9520, L100.0500, L500.4050 ####[facility] [address] [place], [place], [address] Albumin/Globulin [Mass ratio] 1.0 {ratio} Normal 0.7-1.7 [facility] Comment on above: Order Comment: Order Date: 03/17/24Order Info: [id number] - PROEL Performed By: #### L 500.4100, L3100.3450, L501.9910, L509.3000, L501.9520, L100.0500, L500.4050 ####[facility] [address] [place], [address] ALPHA-1 GLOBUL 0.2 g/dL Normal 0.0-0.4 [facility] Comment on above: Order Comment: Order Date: 03/17/24Order Info: 0060-1 - PROEL Performed By: #### L 500.4100, L3100.3450, L501.9910, L509.3000, L501.9520, L100.0500, L500.4050 ####[facility] [address] [place], [address] ALPHA-2 GLOBUL 0.9 g/dL Normal 0.4-1.0 [facility] Comment on above: Order Comment: Order Date: 03/17/24Order Info: 0060-1 - PROEL Performed By: #### L 500.4100, L3100.3450, L501.9910, L509.3000, L501.9520, L100.0500, L500.4050 ####[facility] [address] [place], [address] BETA GLOBULIN 1.5 g/dL High 0.7-1.3 [facility] Comment on above: Order Comment: Order Date: 03/17/24Order Info: 0060-1 - PROEL Performed By: #### L 500.4100, L3100.3450, L501.9910, L509.3000, L501.9520, L100.0500, L500.4050 ####[facility] [address] [place], [address] GAMMA GLOBULIN 1.1 g/dL Normal 0.4-1.8 [facility] Comment on above: Order Comment: Order Date: 03/17/24Order Info: 0060-1 - PROEL Performed By: #### L 500.4100, L3100.3450, L501.9910, L509.3000, L501.9520, L100.0500, L500.4050 ####[facility] [address] [place], [address] Globulin (S) [Mass/Vol] 3.7 g/dL Normal 2.2-3.9 [facility] Comment on above: Order Comment: Order Date: 03/17/24Order Info: 0060-1 - PROEL Performed By: #### L 500.4100, L3100.3450, L501.9910, L509.3000, L501.9520, L100.0500, L500.4050 ####[facility] [address] [place], [address] INTERPRETATION Comment Normal . [facility] Comment on above: Order Comment: Order Date: 03/17/24Order Info: 0060-1 - PROEL Result Comment: Prot ein electrophoresis scan will follow via computer, mail, or acoustical logging engineer delivery. Performed By: #### L 500.4100, L3100.3450, L501.9910, L509.3000, L501.9520, L100.0500, L500.4050 ####[facility] [address] [place], [address] M-SPIKE Not Observed Normal Not Observed [facility] Comment on above: Order Comment: Order Date: 03/17/24Order Info: 0060-1 - PROEL Performed By: #### L 500.4100, L3100.3450, L501.9910, L509.3000, L501.9520, L100.0500, L500.4050 ####[facility] [address] [place], [address] NOTE: Comment Normal . [facility] Comment on above: Order Comment: Order Date: 03/17/24Order Info: 0060-1 - PROEL Result Comment: The SPE pattern demonstrates an increase in the beta fraction. This may be due to increases in transferrin, beta- lipoprotein (hypercholesterolemia), or immunoglobulins, as seen in polyclonal or monoclonal gammopathies. If clinically indicated, the presence of a monoclonal gammopathy may be confirmed by immunofixation or serum free light chain quantitation. Performed at: [facility] [address] [id number] [employer] Sales Director: Tito Delatorre PhD, Phone: [phone] Performed By: #### L 500.4100, L3100.3450, L501.9910, L509.3000, L501.9520, L100.0500, L500.4050 ####[facility] [address] [place], [address] Protein [Mass/Vol] 7.4 g/dL Normal 6.0-8.5 [facility] Comment on above: Order Comment: Order Date: 03/17/24Order Info: 0060-1 - PROEL Performed By: #### L 500.4100, L3100.3450, L501.9910, L509.3000, L501.9520, L100.0500, L500.4050 ####[facility] [address] [place], [place], [id number] Albumin Elph [Mass/Vol]Order ed By: Hira Bryan on 05-12-2024 Albumin [Mass/Vol] 3.7 g/dL 2.9-4.4 [facility] Albumin to globulin ratioOrd ered By: Hira Bryan on 05-12-2024 Albumin/Globulin [Mass ratio] 0.8 {ratio} Low 0.9-2.4 [facility] Bilirubin, totalOrdered By: Hira Bryan on 05-12-2024 Bilirubin [Mass/Vol] 1.00 mg/dL 0.20-1.00 [facility] Comment on above: For patients on eltr ombopag therapy, use of Dimension Bowers TBIL is not recommended. Blood urea nitrogen (BUN)/cr eatinine ratioOrdered By: Hira Bryan on 05-12-2024 Urea nitrogen/Creatinine [Mass ratio] 12.6 mg/mg 10-20 [facility] CBC-Complete Blood Cnt No Di ffon 05-12-2024 Erythrocyte distribution width (RBC) [Ratio] 12.7 % Normal 11.6-14.6 [facility] Comment on above: Order Comment: Order Date: 03/17/24 Order Info: [id number] - CBC Performed By: #### L 500.4100, L3100.3450, L501.9910, L509.3000, L501.9520, L100.0500, L500.4050 #### [facility] [address] [place], [address] Hematocrit (Bld) [Volume fraction] 49.5 % Normal 40-54 [facility] Comment on above: Order Comment: Order Date: 03/17/24 Order Info: [id number] - CBC Performed By: #### L 500.4100, L3100.3450, L501.9910, L509.3000, L501.9520, L100.0500, L500.4050 #### [facility] [address] [place], [address] Hemoglobin (Bld) [Mass/Vol] 16.7 g/dL High 13.0-16.5 [facility] Comment on above: Order Comment: Order Date: 03/17/24 Order Info: [id number] - CBC Performed By: #### L 500.4100, L3100.3450, L501.9910, L509.3000, L501.9520, L100.0500, L500.4050 #### [facility] [address] [place], [address] MCH (RBC) [Entitic mass] 30.1 pg Normal 27.0-32.0 [facility] Comment on above: Order Comment: Order Date: 03/17/24 Order Info: [id number] - CBC Performed By: #### L 500.4100, L3100.3450, L501.9910, L509.3000, L501.9520, L100.0500, L500.4050 #### [facility] [address] [place], [address] MCHC (RBC) [Mass/Vol] 33.7 g/dL Normal 32-36 [facility] Comment on above: Order Comment: Order Date: 03/17/24 Order Info: [id number] - CBC Performed By: #### L 500.4100, L3100.3450, L501.9910, L509.3000, L501.9520, L100.0500, L500.4050 #### [facility] [address] [place], [address] MCV (RBC) [Entitic vol] 89.4 fL Normal 80-94 [facility] Comment on above: Order Comment: Order Date: 03/17/24 Order Info: [id number] - CBC Performed By: #### L 500.4100, L3100.3450, L501.9910, L509.3000, L501.9520, L100.0500, L500.4050 #### [facility] [address] [place], [address] Platelet mean volume (Bld) [Entitic vol] 9.8 fL Normal 6.2-12.0 [facility] Comment on above: Order Comment: Order Date: 03/17/24 Order Info: [id number] - CBC Performed By: #### L 500.4100, L3100.3450, L501.9910, L509.3000, L501.9520, L100.0500, L500.4050 #### [facility] [address] [place], [address] Platelets (Bld) [#/Vol] 237 10*3/uL Normal 150-450 [facility] Comment on above: Order Comment: Order Date: 03/17/24 Order Info: [id number] - CBC Performed By: #### L 500.4100, L3100.3450, L501.9910, L509.3000, L501.9520, L100.0500, L500.4050 #### [facility] [address] [place], [address] RBC (Bld) [#/Vol] 5.54 10*6/uL Normal 4.6-6.2 [facility] Comment on above: Order Comment: Order Date: 03/17/24 Order Info: [id number] - CBC Performed By: #### L 500.4100, L3100.3450, L501.9910, L509.3000, L501.9520, L100.0500, L500.4050 #### [facility] [address] [place], [place], [address] RDW SD 41.6 fl Normal 35.1-43.9 [facility] Comment on above: Order Comment: Order Date: 03/17/24 Order Info: [id number] - CBC Performed By: #### L 500.4100, L3100.3450, L501.9910, L509.3000, L501.9520, L100.0500, L500.4050 #### [facility] [address] [place], [place], [id number] WBC (Bld) [#/Vol] 6.8 10*3/uL Normal 4.4-11.0 [facility] Comment on above: Order Comment: Order Date: 03/17/24 Order Info: [id number] - CBC Performed By: #### L 500.4100, L3100.3450, L501.9910, L509.3000, L501.9520, L100.0500, L500.4050 #### [facility] [address] [place], [place], [address] Carbon dioxide measurementOr dered By: Hira Bryan on 05-12-2024 CO2 [Moles/Vol] 25.0 mmol/L 21.0-32.0 [facility] Chloride measurementOrdered By: Hira Bryan on 05-12-2024 Chloride [Moles/Vol] 105 mmol/L 98-107 [facility] Comprehensive Metabolic Prof ilon 05-12-2024 Albumin [Mass/Vol] 3.6 g/dL Normal 3.2-5.0 [facility] Comment on above: Order Comment: Order Date: 03/17/24 Order Info: 785- - CMP Order Info: - LIPID Order Info: [id number] - TSH Order Info: 2856-03 - PSA Performed By: #### L 500.4100, L3100.3450, L501.9910, L509.3000, L501.9520, L100.0500, L500.4050 #### [facility] [address] [place], [address] Albumin/Globulin [Mass ratio] 0.8 {ratio} Low 0.9-2.4 [facility] Comment on above: Order Comment: Order Date: 03/17/24 Order Info: 785- - CMP Order Info: - LIPID Order Info: [id number] - TSH Order Info: 2856-03 - PSA Performed By: #### L 500.4100, L3100.3450, L501.9910, L509.3000, L501.9520, L100.0500, L500.4050 #### [facility] [address] [place], [address] ALK P 51 U/L Normal 45-117 [facility] Comment on above: Order Comment: Order Date: 03/17/24 Order Info: 785-03 - CMP Order Info: - LIPID Order Info: [id number] - TSH Order Info: 2856-03 - PSA Performed By: #### L 500.4100, L3100.3450, L501.9910, L509.3000, L501.9520, L100.0500, L500.4050 #### [facility] [address] [place], [address] ALT [Catalytic activity/Vol] 49 U/L Normal 16-61 [facility] Comment on above: Order Comment: Order Date: 03/17/24 Order Info: 785- - CMP Order Info: - LIPID Order Info: [id number] - TSH Order Info: 2856-03 - PSA Performed By: #### L 500.4100, L3100.3450, L501.9910, L509.3000, L501.9520, L100.0500, L500.4050 #### [facility] [address] [place], [address] AST [Catalytic activity/Vol] 25 U/L Normal 15-37 [facility] Comment on above: Order Comment: Order Date: 03/17/24 Order Info: 785- - CMP Order Info: [id number] - LIPID Order Info: 3 - TSH Order Info: 2856-03 - PSA Performed By: #### L 500.4100, L3100.3450, L501.9910, L509.3000, L501.9520, L100.0500, L500.4050 #### [facility] [address] [place], [place], [address] Bilirubin [Mass/Vol] 1.00 mg/dL Normal 0.20-1.00 [facility] Comment on above: Order Comment: Order Date: 03/17/24 Order Info: 785-03 - CMP Order Info: - LIPID Order Info: 3015-05 - TSH Order Info: 2856-03 - PSA Result Comment: For patients on eltrombopag therapy, use of Dimension Bowers TBIL is not recommended. Performed By: #### L 500.4100, L3100.3450, L501.9910, L509.3000, L501.9520, L100.0500, L500.4050 #### [facility] [address] [place], [address] BUN/CRE 12.6 RATIO Normal 10-20 [facility] Comment on above: Order Comment: Order Date: 03/17/24 Order Info: 785-03 - CMP Order Info: - LIPID Order Info: 3 - TSH Order Info: 2856-03 - PSA Performed By: #### L 500.4100, L3100.3450, L501.9910, L509.3000, L501.9520, L100.0500, L500.4050 #### [facility] [address] [place], [address] CA,Total 9.6 mg/dL Normal 8.5-10.1 [facility] Comment on above: Order Comment: Order Date: 03/17/24 Order Info: 785-1 - CMP Order Info: [id number] - LIPID Order Info: 3 - TSH Order Info: 2856-1 - PSA Performed By: #### L 500.4100, L3100.3450, L501.9910, L509.3000, L501.9520, L100.0500, L500.4050 #### [facility] [address] [place], [address] Chloride [Moles/Vol] 105 mmol/L Normal 98-107 [facility] Comment on above: Order Comment: Order Date: 03/17/24 Order Info: 785-03 - CMP Order Info: - LIPID Order Info: [id number] - TSH Order Info: 1 - PSA Performed By: #### L 500.4100, L3100.3450, L501.9910, L509.3000, L501.9520, L100.0500, L500.4050 #### [facility] [address] [place], [address] CO2 [Moles/Vol] 25.0 mmol/L Normal 21.0-32.0 [facility] Comment on above: Order Comment: Order Date: 03/17/24 Order Info: 785-03 - CMP Order Info: [id number] - LIPID Order Info: 3 - TSH Order Info: 7-1 - PSA Performed By: #### L 500.4100, L3100.3450, L501.9910, L509.3000, L501.9520, L100.0500, L500.4050 #### [facility] [address] [place], [address] Creatinine [Mass/Vol] 1.11 mg/dL Normal 0.70-1.30 [facility] Comment on above: Order Comment: Order Date: 03/17/24 Order Info: 785-03 - CMP Order Info: - LIPID Order Info: 3 - TSH Order Info: 2856-03 - PSA Result Comment: The validity of the calculated GFR GFRAA in patients over 70 years has not been determined. Clinical correlation is essential. Performed By: #### L 500.4100, L3100.3450, L501.9910, L509.3000, L501.9520, L100.0500, L500.4050 #### [facility] [address] [place], [address] EST GFR - AA 84 mL/min Normal >60 [facility] Comment on above: Order Comment: Order Date: 03/17/24 Order Info: 785-03 - CMP Order Info: - LIPID Order Info: 3015-05 - TSH Order Info: 2856-03 - PSA Result Comment: Afri can Luxembour[place] GFR Calc Performed By: #### L 500.4100, L3100.3450, L501.9910, L509.3000, L501.9520, L100.0500, L500.4050 #### [facility] [address] [place], [place], [id number] [phone] Normal 5-15 [facility] Comment on above: Order Comment: Order Date: 03/17/24 Order Info: 785-03 - CMP Order Info: - LIPID Order Info: 3 - TSH Order Info: 2856-03 - PSA Performed By: #### L 500.4100, L3100.3450, L501.9910, L509.3000, L501.9520, L100.0500, L500.4050 #### [facility] [address] [place], [address] GFR/1.73 sq M.predicted among non-blacks MDRD (S/P/Bld) [Vol rate/Area] 70 mL/min/{1.73_m2} Normal >60 [facility] Comment on above: Order Comment: Order Date: 03/17/24 Order Info: 785-03 - CMP Order Info: - LIPID Order Info: 3015-05 - TSH Order Info: 2856-03 - PSA Result Comment: Non- GFR Calc Performed By: #### L 500.4100, L3100.3450, L501.9910, L509.3000, L501.9520, L100.0500, L500.4050 #### [facility] [address] [place], [address] Globulin (S) [Mass/Vol] 4.3 g/dL High 2.2-4.2 [facility] Comment on above: Order Comment: Order Date: 03/17/24 Order Info: 785-03 - CMP Order Info: - LIPID Order Info: [id number] - TSH Order Info: 2856-03 - PSA Performed By: #### L 500.4100, L3100.3450, L501.9910, L509.3000, L501.9520, L100.0500, L500.4050 #### [facility] [address] [place], [address] Glucose [Mass/Vol] 139 mg/dL High 74-106 [facility] Comment on above: Order Comment: Order Date: 03/17/24 Order Info: 785-03 - CMP Order Info: - LIPID Order Info: 3015-05 - TSH Order Info: 2856-03 - PSA Result Comment: Fast ing Glucose result greater than or equal to 126 mg/dL suggests DIABETES MELLITUS per A.D.A. criteria. Performed By: #### L 500.4100, L3100.3450, L501.9910, L509.3000, L501.9520, L100.0500, L500.4050 #### [facility] [address] [place], [address] Potassium [Moles/Vol] 4.0 mmol/L Normal 3.5-5.1 [facility] Comment on above: Order Comment: Order Date: 03/17/24 Order Info: 785- - CMP Order Info: - LIPID Order Info: [id number] - TSH Order Info: 2856-1 - PSA Performed By: #### L 500.4100, L3100.3450, L501.9910, L509.3000, L501.9520, L100.0500, L500.4050 #### [facility] [address] [place], [address] Sodium [Moles/Vol] 137 mmol/L Normal 136-145 [facility] Comment on above: Order Comment: Order Date: 03/17/24 Order Info: 785-03 - CMP Order Info: - LIPID Order Info: [id number] - TSH Order Info: 1 - PSA Performed By: #### L 500.4100, L3100.3450, L501.9910, L509.3000, L501.9520, L100.0500, L500.4050 #### [facility] [address] [place], [address] T PROT 7.9 g/dL Normal 6.4-8.2 [facility] Comment on above: Order Comment: Order Date: 03/17/24 Order Info: 785-03 - CMP Order Info: - LIPID Order Info: [id number] - TSH Order Info: 1 - PSA Performed By: #### L 500.4100, L3100.3450, L501.9910, L509.3000, L501.9520, L100.0500, L500.4050 #### [facility] [address] [place], [address] Urea nitrogen [Mass/Vol] 14 mg/dL Normal 7-18 [facility] Comment on above: Order Comment: Order Date: 03/17/24 Order Info: 785- - CMP Order Info: - LIPID Order Info: [id number] - TSH Order Info: 2857-1 - PSA Performed By: #### L 500.4100, L3100.3450, L501.9910, L509.3000, L501.9520, L100.0500, L500.4050 #### [facility] [address] [place], [address] Erythrocyte distribution wid th ratioOrdered By: Hira Bryan on 05-12-2024 Erythrocyte distribution width (RBC) [Ratio] 12.7 % 11.6-14.6 [facility] Erythrocyte distribution wid th standard deviationOrdered By: Hira Bryan on 05-12-2024 Erythrocyte distribution width (RBC) [Ratio] 41.6 fl 35.1-43.9 [facility] Glomerular filtration rate ( GFR) estimationOrdered By: Hira Bryan on 05-12-2024 GFR/1.73 sq M.predicted among non-blacks MDRD (S/P/Bld) [Vol rate/Area] 70 mL/min/{1.73_m2} >60 [facility] Comment on above: Non- GFR Calc Glucose measurementOrdered B y: Hira Bryan on 05-12-2024 Glucose [Mass/Vol] 139 mg/dL High 74-106 [facility] Comment on above: Fasting Glucose resu lt greater than or equal to 126 mg/dL suggests DIABETES MELLITUS per A.D.A. criteria. Hematocrit Auto (Bld) [Volum e fraction]Ordered By: Hira Bryan on 05-12-2024 Hematocrit (Bld) [Volume fraction] 49.5 % 40-54 [facility] Hemoglobin measurementOrdere d By: Hira Bryan on 05-12-2024 Hemoglobin (Bld) [Mass/Vol] 16.7 g/dL High 13.0-16.5 [facility] High density lipoprotein (HD L) measurementOrdered By: Hira Bryan on 05-12-2024 Cholesterol in HDL [Mass/Vol] 38 mg/dL Low >40 [facility] Comment on above: The drugs N-Acetylcy steine and Metamizole may falsely depress this assay. Reference Range HDL <40 mg/dL Low HDL Cholesterol HDL >or= 60 mg/dL High HDL Cholesterol Laboratory - Chemistry and C hemistry - challengeOrdered By: Hira Bryan on 05-12-2024 AST [Catalytic activity/Vol] 25 U/L 15-37 [facility] Lipid Profileon 05-12-2024 Cholesterol [Mass/Vol] 208 mg/dL High 200 [facility] Comment on above: Order Comment: Order Date: 03/17/24 Order Info: 785- - CMP Order Info: - LIPID Order Info: [id number] - TSH Order Info: 2856-03 - PSA Result Comment: <200 mg/dL Desirable 200-240 mg/dL Borderline >240 mg/dL High Risk Performed By: #### L 500.4100, L3100.3450, L501.9910, L509.3000, L501.9520, L100.0500, L500.4050 #### [facility] [address] [place], [address] Cholesterol in HDL [Mass/Vol] 38 mg/dL Low [facility] Comment on above: Order Comment: Order Date: 03/17/24 Order Info: 785-03 - CMP Order Info: - LIPID Order Info: [id number] - TSH Order Info: 2856-03 - PSA Result Comment: The drugs N-Acetylcysteine and Metamizole may falsely depress this assay. Reference Range HDL <40 mg/dL Low HDL Cholesterol HDL >or= 60 mg/dL High HDL Cholesterol Performed By: #### L 500.4100, L3100.3450, L501.9910, L509.3000, L501.9520, L100.0500, L500.4050 #### [facility] [address] [place], [address] Cholesterol in LDL [Mass/Vol] 101 mg/dL Normal 0-130 [facility] Comment on above: Order Comment: Order Date: 03/17/24 Order Info: 0786 - CMP Order Info: - LIPID Order Info: [id number] - TSH Order Info: 2856-03 - PSA Performed By: #### L 500.4100, L3100.3450, L501.9910, L509.3000, L501.9520, L100.0500, L500.4050 #### [facility] [address] [place], [address] Cholesterol in VLDL [Mass/Vol] 69 mg/dL High 5-40 [facility] Comment on above: Order Comment: Order Date: 03/17/24 Order Info: 0786-1 - CMP Order Info: [id number] - LIPID Order Info: 3 - TSH Order Info: 2856-03 - PSA Performed By: #### L 500.4100, L3100.3450, L501.9910, L509.3000, L501.9520, L100.0500, L500.4050 #### [facility] [address] [place], [address] (818) Triglyceride [Mass/Vol] 346 mg/dL High [facility] Comment on above: Order Comment: Order Date: 03/17/24 Order Info: 0786 - CMP Order Info: [id number] - LIPID Order Info: 3 - TSH Order Info: 2856-03 - PSA Result Comment: The drugs N-Acetylcysteine and Metamizole may falsely depress this assay. Serum Triglycerides Reference Interval Normal <150 mg/dL Borderline high 150 - 199 mg/dL High 200 - 499 mg/dL Very High > or = 500 mg/dL Performed By: #### L 500.4100, L3100.3450, L501.9910, L509.3000, L501.9520, L100.0500, L500.4050 #### [facility] [address] [place], [address] Low density lipoprotein (LDL ) cholesterol measurementOrdered By: Hira Bryan on 05-12-2024 Cholesterol in LDL [Mass/Vol] 101 mg/dL 0-130 [facility] MCV (mean corpuscular volume ) determinationOrdered By: Hira Bryan on 05-12-2024 MCV (RBC) [Entitic vol] 89.4 fL 80-94 [facility] Mean corpuscular hemoglobin (MCH) determinationOrdered By: Hira Bryan on 05-12-2024 MCH (RBC) [Entitic mass] 30.1 pg 27.0-32.0 [facility] Mean corpuscular hemoglobin concentration (MCHC) determinationOrdered By: Hira Bryan on 05-12-2024 MCHC (RBC) [Mass/Vol] 33.7 g/dL 32-36 [facility] Mean platelet volume determi nationOrdered By: iHra Bryan on 05-12-2024 Platelet mean volume (Bld) [Entitic vol] 9.8 fL 6.2-12.0 [facility] No Panel InformationOrdered By: Hira Bryan on 05-12-2024 Addendum Document Comment . [facility] Comment on above: The SPE pattern demo nstrates an increase in the betafraction. This may be due to increases in transferrin, beta-lipoprotein (hypercholesterolemia), or immunoglobulins, asseen in polyclonal or monoclonal gammopathies. Ifclinically indicated, the presence of a monoclonalgammopathy may be confirmed by immunofixation or serum freelight chain quantitation.Performed at: [address] [id number] Director: Tito Delatorre PhD, Phone: [phone] PSA,Total - Annual Screenon 05-12-2024 PSA,TOT SCREEN 1.23 ng/mL Normal 0.00-4.00 [facility] Comment on above: Order Comment: Order Date: 03/17/24 Order Info: 0786-1 - CMP Order Info: [id number] - LIPID Order Info: [id number] - TSH Order Info: 2857-1 - PSA Result Comment: This test was performed using the TPSA assay method for the [employer] chemistry system. Values obtained with different assay methods cannot be used interchangably. When changing PSA assays in the course of monitoring a patient, additional sequential testing should be carried out to confirm baseline values. Performed By: #### L 500.4100, L3100.3450, L501.9910, L509.3000, L501.9520, L100.0500, L500.4050 #### [facility] [place], [address] Platelet countOrdered By: Ana Bryan on 05-12-2024 Platelets (Bld) [#/Vol] 237 10*3/uL 150-450 [facility] Potassium measurementOrdered By: Hira Bryan on 05-12-2024 Potassium [Moles/Vol] 4.0 mmol/L 3.5-5.1 [facility] Protein Fractions Elph [Inte rp]Ordered By: Hira Bryan on 05-12-2024 Protein Fractions [Interp] Comment . [facility] Comment on above: Protein electrophore sis scan will follow via computer,mail, or acoustical logging engineer delivery. RBC Auto (Bld) [#/Vol]Ordere d By: Hira Bryan on 05-12-2024 RBC (Bld) [#/Vol] 5.54 10*6/uL 4.6-6.2 [facility] Serum albumin to globulin ra daniele by protein electrophoresisOrdered By: Hira Bryna on 05-12-2024 Albumin/Globulin Elph [Mass ratio] 1.0 0.7-1.7 [facility] Serum anion gap measurementO rdered By: Hira Bryan on 05-12-2024 Anion gap [Moles/Vol] 7 mmol/L 5-15 [facility] Serum globulin measurementOr dered By: Hira Bryan on 05-12-2024 Globulin (S) [Mass/Vol] 4.3 g/dL High 2.2-4.2 [facility] Serum globulin measurement ( mass/volume)Ordered By: Hira Bryan on 05-12-2024 Globulin (S) [Mass/Vol] 3.7 g/dL 2.2-3.9 [facility] Serum or plasma alanine hubbard otransferase (ALT) measurementOrdered By: Hira Bryan on 05-12-2024 ALT [Catalytic activity/Vol] 49 U/L 16-61 [facility] Serum or plasma albumin enriqueta urement (mass/volume)Ordered By: Hira Bryan on 05-12-2024 Albumin [Mass/Vol] 3.6 g/dL 3.2-5.0 [facility] Serum or plasma alkaline steve sphatase measurementOrdered By: Hira Bryan on 05-12-2024 ALP [Catalytic activity/Vol] 51 U/L 45-117 [facility] Serum or plasma beta globuli n measurement by electrophoresis (mass/volume)Ordered By: Hira Bryan on 05-12-2024 Beta globulin Elph [Mass/Vol] 1.5 g/dL High 0.7-1.3 [facility] Serum or plasma calcium enriqueta urement (mass/volume)Ordered By: Hira Bryan on 05-12-2024 Calcium [Mass/Vol] 9.6 mg/dL 8.5-10.1 [facility] Serum or plasma cholesterol measurement (mass/volume)Ordered By: Hira Bryan on 05-12-2024 Cholesterol [Mass/Vol] 208 mg/dL High <200 [facility] Comment on above: <200 mg/dL Desirable 200-240 mg/dL Borderline >240 mg/dL High Risk Serum or plasma creatinine m easurement (mass/volume)Ordered By: Hira Bryan on 05-12-2024 Creatinine [Mass/Vol] 1.11 mg/dL 0.70-1.30 [facility] Comment on above: The validity of the calculated GFR & GFRAA in patients over 70 years has not been determined. Clinical correlation is essential. Serum or plasma protein enriqueta urement (mass/volume)Ordered By: Hira Bryan on 05-12-2024 Protein [Mass/Vol] 7.4 g/dL 6.0-8.5 [facility] Serum or plasma protein mono clonal measurement by electrophoresis (mass/volume)Ordered By: Hira Bryan on 05-12-2024 Protein.monoclonal Elph [Mass/Vol] Not Observed g/dL Not Observed [facility] Serum or plasma thyroid stim ulating hormone (TSH) measurement (units/volume)Ordered By: Hira Bryan on 05-12-2024 TSH Qn 2.100 uIU/mL 0.358-3.740 [facility] Serum or plasma urea nitroge n measurement (mass/volume)Ordered By: Hira Bryan on 05-12-2024 Urea nitrogen [Mass/Vol] 14 mg/dL 7-18 [facility] Sodium levelOrdered By: Candice Bryan on 05-12-2024 Sodium [Moles/Vol] 137 mmol/L 136-145 [facility] Testosterone, Serum Totalon 05-12-2024 Testosterone [Mass/Vol] 379.48 ng/dL Normal [facility] Comment on above: Order Comment: Order Date: 03/17/24 Order Info: [id number] - KORTNEY Result Comment: CENT RAL 90% REFERENCE RANGES MALE AGE <50 197.44 - 669.58 ng/dL MALE AGE > or = 50 187.72 - 684.19 ng/dL FEMALE AGE <50 8.38 - 35.01 ng/dL FEMALE AGE > or = 50 <7.00 - 35.92 ng/dL Effective as of 10/19/20 Performed By: #### L 500.4100, L3100.3450, L501.9910, L509.3000, L501.9520, L100.0500, L500.4050 #### [facility] [place], [address] Testosterone, totalOrdered B y: Hira Bryan on 05-12-2024 Testosterone [Mass/Vol] 379.48 ng/dL [facility] Comment on above: CENTRAL 90% REFERENC E RANGES MALE AGE <50 197.44 - 669.58 ng/dL MALE AGE > or = 50 187.72 - 684.19 ng/dL FEMALE AGE <50 8.38 - 35.01 ng/dL FEMALE AGE > or = 50 <7.00 - 35.92 ng/dL Effective as of 10/19/20 Thyroid Stim Hormone (TSH)on 05-12-2024 TSH 2.100 uIU/mL Normal 0.358-3.740 [facility] Comment on above: Order Comment: Order Date: 03/17/24 Order Info: [id number] - CMP Order Info: [id number] - LIPID Order Info: [id number] - TSH Order Info: [id number] - PSA Performed By: #### L 500.4100, L3100.3450, L501.9910, L509.3000, L501.9520, L100.0500, L500.4050 #### [facility] [place], [address] Total proteinOrdered By: Nilsa Bryan on 05-12-2024 Protein [Mass/Vol] 7.9 g/dL 6.4-8.2 [facility] Triglycerides measurementOrd ered By: Hira Bryan on 05-12-2024 Triglyceride [Mass/Vol] 346 mg/dL High <199 [facility] Comment on above: The drugs N-Acetylcy steine and Metamizole may falsely depress this assay.Serum Triglycerides Reference Interval Normal <150 mg/dL Borderline high 150 - 199 mg/dL High 200 - 499 mg/dL Very High > or = 500 mg/dL Very low density lipoprotein (VLDL) cholesterol measurementOrdered By: Hira Bryan on 05-12-2024 Very low density lipoprotein (VLDL) cholesterol measurement 69 mg/dL High 5-40 [facility] White blood cell (WBC) count Ordered By: Hira Bryan on 05-12-2024 WBC (Bld) [#/Vol] 6.8 10*3/uL 4.4-11.0 [facility] Whole blood hemoglobin A1c/t otal hemoglobin ratio (mass fraction)Ordered By: Te Bryan on 05-31-2023 HbA1c (Bld) [Mass fraction] 7.0 % 3.8-5.6 [facility] Comment on above: Normal < 5.7 % Predi abetic 5.7 - 6.4 % Diabetic >or= 6.5 % Please note range changes. CNOVon 05-28-2022 CNOV Office Visit ([facility] ) MILES GOMEZ ([id number]) 1955 [place] Date Time Provider Department 05/28/22 12:15 PM [facility] During your visit today, we recorded the following information about you: Temperature Pulse Respiration Blood pressure 98.6 degrees 58/minute 16/minute 153/75 Weight 102.5 kg Madiha Gibbons DO 05/28/2022 1:42 PM Signed Patient was seen for laceration 14 days [...] back to normal and is this dictation Referring Provider: SELF [200] Allergies As of Date: 05/28/2022 (No Known Allergies) Date Reviewed: 05/28/2022 Reviewed by: Madiha Gibbons DO - Fully Assessed Reason for Visit: Suture Removal [105] Cmt: Left knee staple removal placed 05/14 at [place] [facility] Primary Visit Diagnosis:Encounter for staple removal [Z48.02] Prescriptions as of 05/28/2022 - atenolol (TENORMIN) 25 mg tablet Take 25 mg by mouth once daily. - hydrochlorothiazide 25 mg tablet Take 25 mg by mouth once daily. - [place] Oil-[place]-3 Fatty Acids (FISH OIL) 500-100 mg cap Take by mouth once daily. Problem List As Of Date 05/28/2022 Noted Resolved Right inguinal hernia [K40.90] 03/09/2012 Encounter Status:Closed by MADIHA GIBBONS on 05/28/22 [facility] HISTORY PHYSICALon HISTORY PHYSICAL HNO ID: [id number] Author: Madiha Gibbons DO Service: ? Author Type: Physician Type: HANDP Filed: 05/28/2022 1:42 PM Note Text: Patient was seen for laceration 14 days [...] back to normal and is this dictation [facility] Visit ([facility] ) MILES GOMEZ ([id number]) 1955 M Date Time Provider Department 05/14/22 9:35 AM [facility]AD[facility]HA [facility]IBBONS [facility] During your visit today, we recorded the following information about you: Temperature Pulse Respiration Blood pressure 98.6 degrees 90/minute 16/minute 150/74 Weight 102.5 kg Madiha Gibbons DO 05/14/2022 10:46 AM Signed Miles Gomez is a 66 year old [...] daily for 10 days. 20 tablet 0 [place]-3 Fatty Acids (FISH OIL) 500-100 mg cap [...] S81.012A - AMOXICILLIN 875 MG TABLET Madiha Goldman LPN 05/14/2022 10:59 AM Signed Bandaid applied to left knee, patient tolerated well.Zena Goldman LPN Referring Provider: SELF [200] Allergies As of Date: 05/14/2022 (No Known Allergies) Date Reviewed: 05/14/2022 Reviewed by: Madihaelida Gibbons DO - Fully Assessed Reason for Visit: Laceration [1747] Cmt: Laceration left knee cut with a chain saw yesterday about 10am, wound 4.5cm, tetnus is up to date Primary Visit Diagnosis:Laceration of left knee, initial encounter [S81.012A] Order(s):amoxicillin (AMOXIL) 875 mg tabletTake 1 tablet by mouth twice daily for 10 days.Disp: 20 tabletRfl: 0 DRESSING CHANGE,NOT FOR BURN [[id number]] Order #: [id number] Prescriptions as of 05/14/2022 - amoxicillin (AMOXIL) 875 mg tablet Take 1 tablet by mouth twice daily for 10 days. - atenolol (TENORMIN) 25 mg tablet Take 25 mg by mouth once daily. - hydrochlorothiazide 25 mg tablet Take 25 mg by mouth once daily. - [place]-3 Fatty Acids (FISH OIL) 500-100 mg cap Take by mouth once daily. Problem List As Of Date 05/14/2022 Noted Resolved Right inguinal hernia [K40.90] 03/09/2012 Prescriptions ordered this encounter Disp Refills Start End AMOXICILLIN 875 MG TABLET 20 t* 0 05/14/2022 05/24/2022 Route: ORAL Sig: Take 1 tablet by mouth twice daily for 10 days. Medications Discontinued During This Encounter Prescriptions - Cholecalciferol, Vitamin D3, 25 mcg (1,000 unit) cap (Discontinued) Reported on 05/14/2022 Encounter Status:Closed by MADIHA GIBBONS on 05/14/22 [facility] Absolute lymphocyte counton 10-17-2021 Lymphocytes Auto (Unsp spec) [#/Vol] 1.46 10*3/uL 0.83-4.51 [facility] Work Phone: Basophil percentageon 2021 Basophils/100 WBC (Bld) 0.7 % 0-1 [facility] Work Phone: Bilirubin [Mass/Vol] 0.60 mg/dL 0.20-1.00 [facility] Work Phone: Comment on above: For patients on eltr ombopag therapy, use of Dimension Bowers TBIL is not recommended. Chloride [Moles/Vol] 101 mmol/L 98-107 [facility] Work [facility]: Cholesterol [Mass/Vol] 201 mg/dL <[address] [facility] Work Phone: [phone] Comment on above: <200 mg/dL Desirable 200-240 mg/dL Borderline >240 mg/dL High Risk Eosinophils/100 WBC (Bld) 2.2 % 0-5 [facility] Work Phone: [phone] Glucose [Mass/Vol] 141 mg/dL 74-106 [facility] Work Phone: Comment on above: Fasting Glucose resu lt greater than or equal to 126 mg/dL suggests DIABETES MELLITUS per A.D.A. criteria. Neutrophils (Bld) [#/Vol] 3.7 10*3/uL 2.0-7.7 [facility] Work Phone: [phone] Neutrophils/100 WBC (Bld) 62.0 % 47-70 [facility] Work Phone: Potassium [Moles/Vol] 3.5 mmol/L 3.5-5.1 [facility] Work Phone: [phone] Comment on above: Slight Hemolysis, Re sult may be falsely increased. Protein [Mass/Vol] 7.2 g/dL 6.4-8.2 [facility] Work Phone: Sodium [Moles/Vol] 136 mmol/L 136-145 [facility] Work Phone: Triglyceride [Mass/Vol] 168 mg/dL <199 [facility] Work Phone: Comment on above: The drugs N-Acetylcy steine and Metamizole may falsely depress this assay.Serum Triglycerides Reference Interval Normal <150 mg/dL Borderline high 150 - 199 mg/dL High 200 - 499 mg/dL Very High > or = 500 mg/dL WBC (Bld) [#/Vol] 6.0 10*3/uL 4.4-11.0 [facility] Work Phone: Blood erythrocytes count (nu mber/volume)on 10-17-2021 RBC (Bld) [#/Vol] 5.06 10*6/uL 4.6-6.2 [facility] Work [facility]: Blood hemoglobin measurement (mass/volume)on 10-17-2021 Hemoglobin (Bld) [Mass/Vol] 15.5 g/dL 13.0-16.5 [facility] Work Phone: Blood lymphocytes/100 leukoc yteson 10-17-2021 Lymphocytes/100 WBC (Bld) 24.5 % 19-41 [facility] Work Phone: Blood monocytes/100 leukocyt eson 10-17-2021 Monocytes/100 WBC (Bld) 10.1 % 0-10 [facility] Work Phone: Blood platelet mean volumeon 10-17-2021 Platelet mean volume (Bld) [Entitic vol] 10.3 fL 6.2-12.0 [facility] Work Phone: Determination of erythrocyte mean corpuscular volume (MCV)on 10-17-2021 MCV (RBC) [Entitic vol] 92.3 fL 80-94 [facility] Work Phone: Hematocrit Auto (Bld) [Volum e fraction]on 10-17-2021 Hematocrit (Bld) [Volume fraction] 46.7 % 40-54 [facility] Work Phone: Laboratory - Chemistry and C hemistry - challengeon 10-17-2021 ALP [Catalytic activity/Vol] 47 U/L 45-117 [facility] Work Phone: ALT [Catalytic activity/Vol] 34 U/L 16-61 [facility] Work Phone: CO2 [Moles/Vol] 28.0 mmol/L 21.0-32.0 [facility] Work Phone: Cobalamin (Vitamin B12) [Mass/Vol] 286 pg/mL 211-911 [facility] Work Phone: Globulin (S) [Mass/Vol] 3.8 g/dL 2.2-4.2 [facility] Work Phone: [phone] Magnesium [Mass/Vol] 2.2 mg/dL 1.6-2.6 [facility] Work Phone: [phone] Comment on above: Slight Hemolysis, Re sult may be falsely increased. Urea nitrogen/Creatinine [Mass ratio] 16.3 mg/mg 10-20 [facility] Work Phone: [phone] Laboratory - Hematology and Cell countson 10-17-2021 Erythrocyte distribution width (RBC) [Entitic vol] 45.0 fL 35.1-43.9 [facility] Work Phone: [phone] Erythrocyte distribution width (RBC) [Ratio] 13.3 % 11.6-14.6 [facility] Work Phone: [phone] Immature granulocytes/100 WBC (Bld) 0.500 % 0.0-0.9 [facility] Work Phone: [phone] Comment on above: IG% - Immature Granu locytes (promyelocytes, myelocytes and metamyelocytes) > 1% indicates that a LEFT SHIFT is Present. MCH (RBC) [Entitic mass] 30.6 pg 27.0-32.0 [facility] Work Phone: [phone] Nucleated RBC/100 WBC (Bld) [Ratio] 0 % 0-5 [facility] Work Phone: [phone] MCHC Auto (RBC) [Mass/Vol]on 10-17-2021 MCHC (RBC) [Mass/Vol] 33.2 g/dL 32-36 [facility] Work Phone: [phone] Panel Informationon 10-17 Estimated GFR (MDRD) Amer 91 mL/min >60 [facility] Work Phone: [phone] Comment on above: GFR Calc Estimated GFR (MDRD) Non-Af Amer 75 mL/min >60 [facility] Work Phone: [phone] Comment on above: Non- GFR Calc Prostate Specific Antigen Screen 1.05 ng/mL 0.00-4.00 [facility] Work Phone: [phone] Comment on above: This test was perfor med using the TPSA assay method for the[employer] chemistry system. Values obtained with differentassay methods cannot be used interchangably.When changing PSA assays in the course of monitoring apatient, additional sequential testing should be carriedout to confirm baseline values. Thyroid Stimulating Hormone (TSH) 1.47 uIU/mL 0.358-3.74 [facility] Work Phone: Platelets bldon 10-17-2021 Platelets (Bld) [#/Vol] 232 10*3/uL 150-450 [facility] Work Phone: Serum or plasma albumin enriqueta urement (mass/volume)on 10-17-2021 Albumin [Mass/Vol] 3.4 g/dL 3.2-5.0 [facility] Work Phone: Serum or plasma albumin/glob ulin mass ratioon 10-17-2021 Albumin/Globulin [Mass ratio] 0.9 {ratio} 0.9-2.4 [facility] Work Phone: [phone] Serum or plasma calcium enriqueta urement (mass/volume)on 10-17-2021 Calcium [Mass/Vol] 8.9 mg/dL 8.5-10.1 [facility] Work Phone: Serum or plasma cholesterol in HDL measurement (mass/volume)on 10-17-2021 Cholesterol in HDL [Mass/Vol] 34 mg/dL >40 [facility] Work Phone: Comment on above: The drugs N-Acetylcy steine and Metamizole may falsely depress this assay. Reference Range HDL <40 mg/dL Low HDL Cholesterol HDL >or= 60 mg/dL High HDL Cholesterol Serum or plasma cholesterol in VLDL measurement (mass/volume)on 10-17-2021 Cholesterol in VLDL [Mass/Vol] 34 mg/dL 5-40 [facility] Work Phone: [phone] Serum or plasma creatinine m easurement (mass/volume)on 10-17-2021 Creatinine [Mass/Vol] 1.04 mg/dL 0.70-1.30 [facility] Work Phone: Comment on above: The validity of the calculated GFR & GFRAA in patients over 70 years has not been determined. Clinical correlation is essential. Serum or plasma low density lipoprotein (LDL) cholesterol measurement (mass/volume)on 10-17-2021 Cholesterol in LDL [Mass/Vol] 133 mg/dL 0-130 [facility] Work Phone: Serum or plasma urea nitroge n measurement (mass/volume)on 10-17-2021 Urea nitrogen [Mass/Vol] 17 mg/dL 7-18 [facility] Work Phone: Thin prep Papanicolaou smear with manual screeningon 10-17-2021 Thin prep Papanicolaou smear with manual screening 24 U/L 15-37 [facility] Work Phone: Comment on above: Slight Hemolysis, Re sult may be falsely increased. Thin prep Papanicolaou smear with manual screening 7 5-15 [facility] Work Phone: CNCONon 12-06-2020 CNCON Consults (CLEMS) MILES GOMEZ ([id number]) 1955 M Date Time Provider Department 12/06/20 NAOMIE DE PAZ During your visit today, we recorded the following information about you: Damaris Bruno RN 12/06/2020 3:00 PM Signed Patient presented for a colonoscopy consultation at [...] office. Appointment for today was cancelled. Damaris Bruno RN Allergies As of Date: 12/06/2020 (No Known Allergies) Date Reviewed: 04/24/2016 Reviewed by: Jenna ProctorRn) WALI Vaughn - Fully Assessed Primary Visit Diagnosis:Encounter for screening colonoscopy [Z12.11] Prescriptions as of 12/06/2020 - atenolol (TENORMIN) 25 mg tablet Take 25 mg by mouth once daily. - Cholecalciferol, Vitamin D3, (VITAMIN D) 1,000 unit cap Take 1,000 Units by mouth once daily. - hydrochlorothiazide 25 mg tablet Take 25 mg by mouth once daily. - [place]-3 Fatty Acids (FISH OIL) 500-100 mg cap Take by mouth once daily. Problem List As Of Date 12/06/2020 Noted Resolved Right inguinal hernia [K40.90] 03/09/2012 Encounter Status:Closed by DAMARIS BRUNO on 12/06/20 [facility]-2017 Prolactin 5.5 ng/mL Normal 2.0-18.0 [facility] Comment on above: Performed By: #### P EVERARDO TESTO ####[place] [address] TESTOon 03-23-2017 Testosterone Lvl 250.2 ng/dL Normal 241.0-827.0 [facility] ([place]) Comment on above: Performed By: #### P EVERARDO TESTO ####[place] [id number] XR CHEST 2 VIEWSon 7 XR CHEST 2 VIEWS ORIGINAL2 view chest CLINICAL HISTORY: Cough COMPARISON: None. FINDINGS: The cardiomediastinal contours are normal. There is no focal airspace disease. No nodule or mass is identified. There is no appreciable pleural fluid or pneumothorax. No suspicious osseous abnormality is identified. Degenerative changes seen in the spine. Fluid noted in the azygous fissure. IMPRESSION:1. No acute radiographic findings. Interpreted By: Mitch Jinreliminary Report By: Mitch Jin MDElectronically Signed By: Mitch Jin MD Dictated Date: 03/16/2017 10:01:39 AM Prelim Date: 03/16/2017 10:01:39 AM Sign Date: 03/16/2017 10:02:30 AM Normal [facility] Vital Signs Date Time Vital Sign Value Performing Clinician Faci lity 12-03-2024 15:28-0400 Body temperature 98.2 [degF] Dr. Hira Bryan MD Work Phone: [phone] [place] [address] 12-03-2024 15:28-0400 Body weight 99.[address] Hira Bryan MD Work Phone: [phone] [place] [address] 12-03-2024 15:28-0400 Diastolic blood pressure 83 mm[Hg] Dr. Hira Bryan MD Work Phone: [facility] 12-03-2024 15:28-0400 Heart rate 80 /min Dr. Hira Bryan MD Work Phone: [phone] [place] [address] 12-03-2024 15:28-0400 Respiratory rate 18 /min Dr. Hira Bryan MD Work Phone: [phone] [place] [address] 12-03-2024 15:28-0400 SaO2% (BldA) [Mass fraction] 95 % Dr. Hira Bryan MD Work Phone: [facility] 12-03-2024 15:28-0400 Systolic blood pressure 133 mm[Hg] Dr. Hira Bryan MD Work Phone: [facility] 09-24-2024 10:12-0400 Body temperature 98.2 [degF] Dr. Hira Bryan MD Work Phone: [facility] 09-24-2024 10:12-0400 Body weight 99.[address] Hira Bryan MD Work Phone: [facility] 09-24-2024 10:12-0400 Diastolic blood pressure 68 mm[Hg] Dr. Hira Bryan MD Work Phone: [facility] 09-24-2024 10:12-0400 Heart rate 62 /min Dr. Hira Bryan MD Work Phone: [facility] 09-24-2024 10:12-0400 Respiratory rate 16 /min Dr. Hira Bryan MD Work Phone: [facility] 09-24-2024 10:12-0400 SaO2% (BldA) [Mass fraction] 96 % Dr. Hira Bryan MD Work Phone: [facility] 09-24-2024 10:12-0400 Systolic blood pressure 117 mm[Hg] Dr. Hira Bryan MD Work Phone: [facility] 05-28-2022 12:23-0500 Body temperature 98.6 [degF] U[facility] Work Phone: [facility] 05-28-2022 12:23-0500 Body weight 102.51 kg Urg [facility] Work Phone: [facility] 05-28-2022 12:23-0500 Diastolic blood pressure 75 mm[Hg] [facility] Work Phone: [facility] 05-28-2022 12:23-0500 Heart rate 58 /min [facility] Work Phone: [facility] 05-28-2022 12:23-0500 Respiratory rate 16 /min [facility] Work Phone: [facility] 05-28-2022 12:23-0500 SaO2% (BldA) [Mass fraction] 96 % [facility] Work Phone: [facility] 05-28-2022 12:23-0500 Systolic blood pressure 153 mm[Hg] [facility] Work Phone: [facility] 05-14-2022 10:12-0500 Body temperature 98.6 [degF] Madiha Gibbons DO Work Phone: [facility] 05-14-2022 10:12-0500 Body weight 102.51 kg Madiha Gibbons DO Work Phone: [facility] 05-14-2022 10:12-0500 Diastolic blood pressure 74 mm[Hg] Madiha Gibbons DO Work Phone: [facility] 05-14-2022 10:12-0500 Heart rate 90 /min Madiha Gibbons DO Work Phone: [facility] 05-14-2022 10:12-0500 Respiratory rate 16 /min Madiha Gibbons DO Work Phone: [facility] 05-14-2022 10:12-0500 SaO2% (BldA) [Mass fraction] 98 % Madiha Gibbons DO Work Phone: [facility] 05-14-2022 10:12-0500 Systolic blood pressure 150 mm[Hg] Madiha Gibbons DO Work Phone: [facility] Encounters Encounter Date Encounter Type Care Provider Facility Start: 02-27-2025 ambulatory Ritu Appaih Facility:[facility] Start: 12-04-2024 End: 12-04-[address] Hira Bryan MD Work Phone: -Laboratory Specimen Start: 12-04-2024 End: 12-04-[address] Hira Bryan MD -Laboratory Specimen Work Phone: Start: 12-03-2024 End: 12-03-2024 Patient encounter procedure Ritu Appiah [place] -[facility] Work Phone: Start: 12-03-2024 End: 12-04-[address] Hira Bryan MD Work Phone: -[facility] Start: 09-24-2024 Non-patient / Non-visit Dr. Jeremy johnson MD -[facility] Start: 09-24-2024 End: 09-24-[address] Hira Bryan MD Work Phone: -Cardiovascular Services Start: 09-24-2024 End: 09-24-2024 Patient encounter procedure Ritu SANTANA -Cardiovascular Services Work Phone: Start: 09-24-2024 End: 09-24-2024 Patient encounter procedure Ritu SANTANA -[facility] Work Phone: Start: 09-24-2024 End: 09-24-[address] Hira Bryan MD Work Phone: -[facility] Start: 09-24-2024 End: 09-24-2024 ambulatory Ritu Appiah Facility:[facility] Start: 08-14-2024 Non-patient / Non-visit Dr. Jeremy johnson MD -[facility] Start: 08-14-2024 End: 08-14-[address] Hira Bryan MD Work Phone: [facility] Work Phone: Start: 08-14-2024 End: 08-14-[address] Goyo Del Valle MD -Cardiovascular Services Work Phone: Start: 08-14-2024 End: 08-14-2024 ambulatory Hira Bryan Facility:[facility] Start: 05-12-2024 End: 05-12-[address] Hira Bryan MD -[facility] Work Phone: Start: 05-12-2024 End: 05-12-2024 ambulatory Hira Bryan Facility:[facility] Start: 05-31-2023 End: 05-31-2023 ambulatory [facility] Work Phone: Start: 05-31-2023 End: 05-31-2023 Patient encounter procedure [facility] Start: 05-28-2022 End: 05-28-2022 ambulatory ALLIE TIWARI Facility:[id number] Start: 05-28-2022 End: 05-28-2022 Patient encounter procedure [facility] Work Phone: [facility] Comment on above: Encounter for staple removal (Primary Dx) Start: 05-14-2022 End: 05-14-2022 ambulatory ALLIE TIWARI Facility:[id number] Start: 05-14-2022 End: 05-14-2022 Patient encounter procedure Madiha Gibobns DO Work Phone: [facility] Comment on above: Laceration of left k nee, initial encounter (Primary Dx) Start: 10-17-2021 End: 10-17-2021 Patient encounter procedure [facility] Start: 03-23-2017 End: 03-28-2017 Ambulatory ALLIE TIWARI Facility:[facility] Start: 03-16-2017 End: 03-17-2017 [facility] Procedures Date Procedure Procedure Detail Performing Clinician Start: 05-12-2024 Electrophoresis: [id number] Dr. Hira Bryan MD Work Phone: Start: 05-12-2024 Electrophoresis: [id number] Dr. Hira Bryan MD Work Phone: Start: 05-12-2024 Electrophoresis: jimenez ma globulin Dr. Hira Bryan MD Work Phone: Start: 05-12-2024 Measurement of renal function Dr. Hira Bryan MD Work Phone: Comment on above: GFR Calc Start: 05-12-2024 Prostate specific an tigen measurement Dr. Hira Bryan MD Work Phone: Comment on above: This test was perfor med using the TPSA assay method for the[employer] chemistry system. Values obtained with differentassay methods cannot be used interchangably.When changing PSA assays in the course of monitoring apatient, additional sequential testing should be carriedout to confirm baseline values. Start: 04-24-2016 Colonoscopy Madiha james DO Work Phone: Plan of Treatment Date Care Activity Detail Author Start: 04-24-2026 Colonoscopy COLONOSCOPY [facility] Start: 04-24-2026 COLORECTAL CANCER SCREENING COLORECTAL CANCER SCREENING [facility] Start: 03-26-2022 ADVANCE DIRECTIVE DISCUSSION ADVANCE DIRECTIVE DISCUSSION [facility] Start: 03-26-2022 DEPRESSION ASSESSMENT DEPRESSION ASS ESSMENT [facility] Start: 11-24-2021 Influenza vaccination INFLUENZA (#1) [facility] Start: 2018 PNEUMOCOCCAL: 65+ (1 - PCV) PNEUMOCOCCAL: 65+ (1 - PCV) [facility] Start: 02-13-2017 LIPID SCREEN LIPID SCREEN [facility] Start: 02-13-2015 DIABETES SCREEN DIABETES SCREEN [facility] Start: 2008 PROSTATE CANCER SCREENING DISCUSSION PROSTATE CANCER SCREENING DISCUSSION [facility] Start: 08-21-2003 SHINGRIX VACCINE (1 of 2) SHINGRIX VACCINE (1 of 2) [facility] Start: 1998 COLOGUARD (FIT-DNA) COLOGUARD (FIT-D NA) [facility] Start: [address] COLONOGRAPHY [facility] Start: 1998 FECAL OCCULT BLOOD FECAL OCCULT BLOO D [facility] Start: 1998 SIGMOIDOSCOPY SIGMOIDOSCOPY [facility] Start: 1972 Urine microalbumin profile DTAP,TDAP,TD (1 - Tdap) [facility] Start: 08-21-1971 HEPATITIS C SCREENING HEPATITIS C SC REENING [facility] Start: 02-20-1954 COVID-19 VACCINE (#1) COVID-19 VACCI NE (#1) [facility] Start: 1955 ABDOMINAL AORTIC ANEURYSM SCREENING ABDOMINAL AORTIC ANEURYSM SCREENING [facility] Dressing change unde r anesthesia DRESSING CHANGE,NOT FOR BURN Procedures Routine Laceration of left knee, initial encounter Ordered: 05/14/2022 [facility] Work Phone: Comment on above: Ordered: 05/14/2022 US.doppler Lower extremity vein [facility] US.doppler Lower extremity vein [facility] US.doppler Lower extremity vein [facility] Payers Date Payer Category Payer Self-pay [id number] 2022 Medicare [id number] 2019 Medicare [id number] 2019 Medicare [id number] 2017 Unknown [id number] 2005 Unknown [id number] Unknown [id number] 2.16.8 [id number] Unknown [id number] 2.16.8 [id number] Unknown [id number] 2.16.8 [id number] Unknown [id number] 2.16.8 [id number] Unknown [id number] 2.16.8 [id number] Unknown [id number] 2.16.8 [id number] Unknown [id number] 2.16.8 [id number] Unknown [id number] 2.16.8 [id number] Unknown [id number] 2.16.8 [id number] Social History Date Type Detail Facility Start: 05-11-2021 Tobacco smoking stat [facility] Unknown if ever smoked [facility] Start: 1955 Sex Assigned At Male [facility] Start: 03-09-2012 End: 09-24-2024 Tobacco smoking status VTIS Ex-smoker [facility] End: 03-09-1982 History of tobacco use Current smoker [facility] End: 03-09-1982 History of tobacco use Cigarette Smoker [facility] Start: 05-14-2022 End: 05-28-2022 Alcohol intake Current drinker of alcohol (finding) [facility] Start: 04-24-2016 Alcohol Comment rarely [facility] Start: 1955 Sex Assigned At Not on file [facility] Start: 05-11-2021 Tobacco smoking stat us NHIS Never smoked tobacco (finding) [facility] Sex Male [facility] Medical Equipment Procedure Code Equipment Code Equipment Origin al Text Equipment Identifier Dates Mesh Srg Flat Te c 6x6in [place] - [id number] Start: 04-08-2012 Comment on above: Description: PARIETE X Clinical Notes 12-06-2020 to 09-24-2024 Note Date & Type Note Facility 09-24-2024 Evaluation note Diagnosis Onset Date Resolution Left leg DVT acute September 24 9:45am [facility] Work Phone: 1(615) 631-857507-02-2025 Evaluation note* Diagnosis Onset Date Resolution Status Admit Date Left leg DVT acute September 24 9:45am Left leg DVT acute December 032024 3:12pm [facility] Work Phone: 1(959) 820-864203-05-2023 History and physical note* Madiha Gibbons DO - 05/28/2022 1:40 PM EST Patient was seen for laceration 14 days ago and jamaal were placed about 15 of them in the left knee. He presents today to have those jamaal removed. The wound is dry clean no drainage no bleeding.It looks good the jamaal were all removed the patient tolerated it well no complications were encountered. The one end toward the proximal end has a small scab over and I did put a little bacitracinand a Band-Aid over that area. He was [...] and is this dictation [facility]23 NoteHNO ID: [id number] Author: Zena Goldman LPN Service: ? Author Type: LICENSED NURSE Type: Progress Notes Filed: 05/14/2022 10:59 AM Note Text: Bandaid applied to left knee, patient tolerated well.Zena Andradebradleyzohaib, [facility]02-19-2023 NoteHNO ID: [id number] Author: Madiha Gibbons, DO Service: ? Author Type: Physician Type: [...] daily for 10 days. 20 tablet 0 [place] [employer]-3 Fatty Acids (FISH OIL) 500-100 mg cap [...] S81.012A - AMOXICILLIN 875 MG TABLET Madiha Juarez [facility]02-19-2023 History of Present illness Narrative * Zena Goldman LPN - 05/14/2022 10:58 AM EST Bandaid applied to left knee, patient tolerated well.Zena Goldman LPN * Madiha Gibbons DO - 05/14/2022 10:42 AM EST Images from the original note were not [...] daily for 10 days. 20 tablet 0 [place] [employer]-3 Fatty Acids (FISH OIL) 500-100 mg cap [...] wound edges were approximated hemostasis was achieved bacitracinand a Band-Aid are applied the patient is [...] MG TABLET Madiha Gibbons [facility]2021 NoteHNO ID: [id number] Author: Damaris Bruno RN Service: ? Author Type: Registered Nurse [...] office. Appointment for today was cancelled. [facility]aris [facility] noteNo assessment information availableWOur [facility] Work Phone: Evaluation note* Diagnosis Laceration of left knee, initial encounter- Primary documented in this encounter [facility] note* Diagnosis Encounter for staple removal- Primary Encounter for removal of sutures documented in this encounter [facility] note* Diagnosis Onset Date Resolution Status Admit Date Left leg DVT acute September 24 9:45am Deep vein thrombosis (DVT) noneactiv e September 24, 2024 9:45am [facility] Work Phone: Reason for referral (narrative)No reason for referral information availableWOur Lady of Mercy [facility] Work Phone: Summary Purpose Family History No Family History Records Found Relationship Condition Age at Onset Recorded Date/T elizabeth father Cardiac disease Unknown Hypertension Unknown Advance Directives No Advanced Directives Records Found Advance Directive Response Recorded Date/ Time Living Will No May 11, 022 4:11pm 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 Instant 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 No May 11, 2021 4:11pm Chief Complaint and Reason for Visit Chief Complaint Admit Date EORDER May 12, 2024 11:00am LEFT LEG PAIN August 14, 2024 10:34 am Chief Complaint Admit Date LEFT LEG PAIN August 14, 2024 10:34 am Deep vein thrombosis September 24, 2024 9:45 am Reason for Visit Admit Date Left leg DVT September 24, 2024 9:45a m Deep vein thrombosis (DVT) September 24 9:45am Chief Complaint Admit Date LEFT LEG PAIN August 14, 2024 10:34 am Deep vein thrombosis September 24, 2024 9:45 am Localized swelling, mass and lump, left lower limb September 24, 2024 12:46pm Reason for Visit Admit Date Left leg DVT September 24, 2024 9:45a m Chief Complaint Admit Date LEFT LEG PAIN August 14, 2024 10:34 am Deep vein thrombosis September 24, 2024 9:45 am Localized swelling, mass and lump, left lower limb September 24, 2024 12:46pm 1 M FU December 03, 2024 3:12pm Chief Complaint Admit Date Deep vein thrombosis September 24, 2024 9:45 am Localized swelling, mass and lump, left lower limb September 24, 2024 12:46pm 1 M FU December 03, 2024 3:12pm Reason for Visit Admit Date Left leg DVT September 24, 2024 9:45a m Left leg DVT December 03, 2024 3:12pm Additional Source Comments (unrecognized sect ion and content) No Status Records FoundNo Status Records FoundNo Status Records FoundNo Status Records Found INFORMATION SOURCE (unrecogn ized section and content) DATE CREATED AUTHOR 09/18/2017 [facility] ([place]) DATE CREATED AUTHOR AUTHOR'S ORGANIZ ATION 12/09/2020 [facility] DATE CREATED AUTHOR AUTHOR'S ORGANIZ ATION 05/30/2022 [facility] DATE CREATED AUTHOR AUTHOR'S ORGANIZ ATION 02/05/2025 [facility] Goals (unrecognized section and content) Goals may be documented in a n alternate sectionGoals may be documented in an alternate sectionGoals may be documented in an alternate sectionGoals may be documented in an alternate sectionGoals may be documented in an alternate sectionGoals may be documented in an alternate sectionGoals may be documented in an alternate section Source Comments (unrecognize d section and content) In the event this informatio n is protected by the Federal Confidentiality of Alcohol and Drug Abuse Patient Records regulations: The Federal rules restrict any use of the information to criminally investigate or prosecute any alcohol or drug abuse patient.[facility] HospitalIn the event this information is protected by the Federal Confidentiality of Alcohol and Drug Abuse Patient Records regulations: The Federal rules restrict any use of the information to criminally investigate or prosecute any alcohol or drug abuse patient.[facility] Reason for Visit (unrecogniz ed section and content) Reason Comments Laceration Laceration left knee cut with a chain saw yesterday about 10am, wound 4.5cm, tetnus is up to date Reason Comments Suture Removal Left knee staple rem oval placed 05/14 at [facility] Care Teams (unrecognized sec tion and content) [employer]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 Vijay Joseph MD Family Provider Active Te BEAN MD Primary Care Provider Active Team Status: Inactive Member Role Status Dates Te BEAN MD Primary Care Provider Active Dr. Te Bryan MD Attending Provider Active Team Status: Active Member Role Status Dates Dr. Hira Bryan MD Primary Care Provider Acti ve Team Status: Inactive Member Role Status Dates Dr. Hira Bryan MD Primary Care Provider Acti ve Start: May 12, 2024 End: May 12, 2024 Dr. Hira Bryan MD Attending Provider Active Start: May 12, 2024 End: May 12, 2024 Dr. Hira Bryan MD Referring Provider Active Start: May 12, 2024 End: May 12, 2024 Team Status: Inactive Member Role Status Dates Dr. Hira Bryan MD Primary Care Provider Acti ve Start: August 14, 2024 End: August 14, 2024 Dr. Goyo Del Valle MD Attending Provider Active Start: August 14, 2024 End: August 14, 2024 Dr. Goyo Del Valle MD Referring Provider Active Start: August 14, 2024 End: August 14, 2024 Team Status: Active Member Role Status Dates Dr. Hira Bryan MD Primary Care Provider Acti ve Start: August 14, 2024 Dr. Jeremy Ch MD Attending Provider Active S tart: August 14, 2024 Team Status: Active Member Role/Relationship Status Dates Dr. Hira Bryan MD Primary Care Provider Acti ve Team Status: Inactive Member Role/Relationship Status Dates Dr. Hira Bryan MD Primary Care Provider Acti ve Start: August 14, 2024 End: August 14, 2024 Dr. Goyo Del Valle MD Attending Provider Active Start: August 14, 2024 End: August 14, 2024 Dr. Goyo Del Valle MD Referring Provider Active Start: August 14, 2024 End: August 14, 2024 Team Status: Active Member Role/Relationship Status Dates Dr. Hira Bryan MD Primary Care Provider Acti ve Start: August 14, 2024 Dr. Jeremy Ch MD Attending Provider Active S tart: August 14, 2024 Dr. Goyo Del Valle MD Referring Provider Active Start: August 14, 2024 Team Status: Inactive Member Role/Relationship Status Dates Dr. Hira Bryan MD Primary Care Provider Acti ve Start: September 24, 2024 End: September 24, 2024 Dr. Hira Bryan MD Referring Provider Active Start: September 24, 2024 End: September 24, 2024 ESTHER Santoyo Attending Provider Active Star t: September 24, 2024 End: September 24, 2024 Team Status: Inactive Member Role/Relationship Status Dates Dr. Hria Bryan MD Primary Care Provider Acti ve Start: September 24, 2024 End: September 24, 2024 ESTHER Santoyo Attending Provider Active Star t: September 24, 2024 End: September 24, 2024 ESTHER Santoyo Referring Provider Active Star t: September 24, 2024 End: September 24, 2024 Team Status: Active Member Role/Relationship Status Dates Dr. Hira Bryan MD Primary Care Provider Acti ve Start: September 24, 2024 Dr. Jeremy Ch MD Attending Provider Active S tart: September 24, 2024 Team Status: Active Member Role/Relationship Status Dates Dr. Hira Bryan MD Primary Care Provider Acti ve Start: September 24, 2024 Dr. Jeremy Ch MD Attending Provider Active S tart: September 24, 2024 ESTHER Santoyo Referring Provider Active Star t: September 24, 2024 Team Status: Inactive Member Role/Relationship Status Dates Dr. Hira Bryan MD Primary Care Provider Acti ve Start: December 03, 2024 End: December 03, 2024 Dr. Hira Bryan MD Referring Provider Active Start: December 03, 2024 End: December 03, 2024 ESTHER Santoyo Attending Provider Active Star t: December 03, 2024 End: December 03, 2024 Team Status: Active Member Role/Relationship Status Dates Dr. Hira Bryan MD Primary care physician Act hiwot Team Status: Inactive Member Role/Relationship Status Dates Dr. Hira Bryan MD Primary care physician Act hiwot Start: September 24, 2024 End: September 24, 2024 Dr. Hira Bryan MD Referring Provider Active Start: September 24, 2024 End: September 24, 2024 ESTHER Santoyo Attending physician Active Sta rt: September 24, 2024 End: September 24, 2024 Team Status: Inactive Member Role/Relationship Status Dates Dr. Hira Bryan MD Primary care physician Act hiwot Start: September 24, 2024 End: September 24, 2024 ESTHER Santoyo Attending physician Active Sta rt: September 24, 2024 End: September 24, 2024 ESTHER Santoyo Referring Provider Active Star t: September 24, 2024 End: September 24, 2024 Team Status: Active Member Role/Relationship Status Dates Dr. Hira Bryan MD Primary care physician Act hiwot Start: September 24, 2024 Dr. Jeremy Ch MD Attending physician Active Start: September 24, 2024 ESTHER Santoyo Referring Provider Active Star t: September 24, 2024 Team Status: Inactive Member Role/Relationship Status Dates Dr. Hira Bryan MD Primary care physician Act hiwot Start: December 03, 2024 End: December 03, 2024 Dr. Hira Bryan MD Referring Provider Active Start: December 03, 2024 End: December 03, 2024 ESTHER Santoyo Attending physician Active Sta rt: December 03, 2024 End: December 03, 2024 Team Status: Inactive Member Role/Relationship Status Dates Dr. Hira Bryan MD Primary care physician Act hiwot Start: December 04, 2024 End: December 04, 2024 Dr. Hira Bryan MD Attending physician Active Start: December 04, 2024 End: December 04, 2024 FOR RECORDS PERTAINING TO PATIENTS WHO ARE [...] BE BASED ON THE PRIMARY CLINICAL RECORDS. [employer] provides no warranty or guarantee of the accuracy or completeness of information in this document.
== END | disposition home or self-care (01) ==
LOC: CVS 10:04
PROVIDERS: PCP Family Medicine; Referring Provider Physician Assistant; Visit Provider Physician Assistant
DX: M79.89 Other specified soft tissue disorders (principal); I82.402 Acute embolism and thrombosis of unspecified deep veins of left lower extremity
CPT/HCPCS: 93971